=== PATIENT | female | born 1995 | race Caucasian/White ===

== ENCOUNTER 2020-10-28 11:52 | Emergency (ER) | payer OTHER, SELFPAY ==
[2020-10-28 11:56] VITALS: BP 143/96; PULSE 72; RESP 16; TEMP 36.4; O2SAT 100
[2020-10-28 12:09] LABS: Add Urine Microscopic? YES; Appearance Urine Cloudy (Clear); Bilirubin Urine Negative (Negative); Blood Urine 2+ (Negative); Color Urine Yellow (Yellow); Glucose Urine UA Negative (Negative); Ketones Urine Negative (Negative); Leukocyte Esterase Ur 3+ LEU/UL (Negative); Mucus Urine Rare /lpf; Nitrate Urine Negative (Negative); Protein Urine 1+ mg/dL (Negative); RBC Urine 21-50 /hpf (0-2); Specific Grav Ur 1.018 (1.001-1.035); Squamous Epithelial Cell Urine Many /hpf (Few); Urobilinogen Urine Negative mg/dL (<2.0); WBC Urine >75 /hpf
--- NOTE | 2020-10-28 13:41 | ED.FEMALEGU ---
HPI - Female Genitourinary General Chief complaint: Urogenital-Female Stated complaint: urinary symptoms Time Seen by Provider: 10/28/20 11:59 History of Present Illness HPI Narrative: Patient is a 25-year-old female who presents ER with concerns for UTI. Patient has lower abdominal pressure with urinary frequency and urgency. She is also been experiencing dysuria. Ongoing for 2 days. No fevers or chills or sweats. Reports she is also had increase in vaginal discharge over the last couple days. 3 weeks ago patient experienced a miscarriage at 10 weeks gestation. She is taken a test until it was negative which took 2 weeks. She is not having vaginal bleeding. Reports being sexually active with one partner and does not feel she is at risk for sexually transmitted infection. Related Data Allergies Allergy/AdvReac Type Severity Reaction Status Date / Time No Known Allergies Allergy Unknown Verified 10/28/20 11:56 Review of Systems Review of Systems: All systems reviewed & are unremarkable except as noted in HPI and below Constitutional: Constitutional: Denies chills Comments: Afebrile Gastrointestinal: Gastrointestinal: Reports abdominal pain, Denies nausea and Denies vomiting Genitourinary: Genitourinary: Denies abnormal vaginal bleeding, Denies hematuria, Reports nocturia, Reports dysuria and Reports vaginal discharge PMFSH Past Medical History Medical History (Updated 10/28/20 @ 13:52 by Santiago Sahu MD) Depression Surgical History Surgical History (Updated 10/28/20 @ 13:50 by Santiago Sahu MD) No pertinent past surgical history Social History Social History Smoking status: Never smoker Alcohol intake: never Substance use: never Gender identity (if verbalized by the patient): Female Spiritual care concerns: No Exam Narrative: Exam Narrative: GENERAL: Well-appearing, well-nourished, and in no acute distress. HEAD: Normocephalic, atraumatic. CHEST: Clear to auscultation. No respiratory distress. HEART: Regular rate and rhythm. Normal peripheral pulses. ABDOMEN: Soft, nontender, nondistended. No CVA tenderness. Pelvic: Normal external genitalia. Vaginal exam with white physiologic discharge. Cervix normal appearance with closed cervical os and no signs of friability/erythema. No tenderness on speculum exam. EXTREMITIES: Normal range of motion. No edema. NEURO: Alert and oriented x3. Course Course Emergency Course: Symptoms felt to be related to UTI. Pelvic swabs sent to the lab. Follow-up with PCP or gynecology. Vital Signs Vital signs: Vital Signs Temperature 97.6 F 10/28/20 11:56 Pulse Rate 72 10/28/20 11:56 Respiratory Rate 16 10/28/20 11:56 Blood Pressure 143/96 H 10/28/20 11:56 Pulse Oximetry 100 10/28/20 11:56 Temperature 97.6 F 10/28/20 11:56 Pulse Rate 72 10/28/20 11:56 Respiratory Rate 16 10/28/20 11:56 Blood Pressure 143/96 H 10/28/20 11:56 Pulse Oximetry 100 10/28/20 11:56 MDM - Female Genitourinary Lab Data Labs: Lab Results 10/28/20 Range/Units 12:00 Urine Color Yellow (Yellow) Urine Appearance Cloudy H (Clear) Urine pH 6.0 (5.0-9.0) Ur Specific Alden 1.018 (1.001-1.035) Urine Protein 1+ H (Negative) mg/dL Urine Glucose (UA) Negative (Negative) mg/dL Urine Ketones Negative (Negative) mg/dL Ur Blood (Man) 2+ H (Negative) Urine Nitrate Negative (Negative) Urine Bilirubin Negative (Negative) Urine Urobilinogen Negative (<2.0) mg/dL Leukocyte Esterase Rfl 3+ H (Negative) ERVIN/UL Urine RBC 21-50 H (0-2) /hpf Urine WBC >75 H /hpf Ur Squamous Epith Cells Many H (Few) /hpf Urine Mucus Rare /lpf UCG Bedside Result Negative Reference Range: Negative Discharge Plan Discharge Clinical Impression: UTI (urinary tract infection) Patient Disposition: Home, Self-Care Condition
[2020-10-28 13:57] VITALS: BP 138/76; PULSE 72; RESP 18; O2SAT 100
== END 2020-10-28 13:58 | disposition home or self-care (01) ==
PROVIDERS: Emergency Provider Emergency Medicine; Referring Provider Family Medicine
DX: N39.0 Urinary tract infection, site not specified (principal)
CPT/HCPCS: 81001; 81025; 87070; 87077; 87086; 87088; 87491; 87591; 87808; 99284

== ENCOUNTER 2021-03-17 09:26 | Emergency (ER) | payer OTHER, SELFPAY ==
[2021-03-17 09:35] VITALS: BP 113/72; PULSE 50; RESP 16; TEMP 36.8; O2SAT 100
--- NOTE | 2021-03-17 10:15 | ED.GENADULT ---
HPI - General Adult General Chief complaint: Urogenital-Female Stated complaint: ?Yeast Infection,17 weeks Time Seen by Provider: 03/17/21 09:43 Source: patient Mode of arrival: ambulatory Limitations: no limitations History of Present Illness HPI narrative: Patient is here for concern for vaginal yeast infection. She was treated for UTI x2 in the past 4 weeks. She is 17 weeks . She was also treated for yeast infection with Diflucan x2 doses approximately 4 weeks ago. She denies urinary symptoms although does have some blood when she wipes. She denies any cramping and has been diagnosed with subchorionic hemorrhage in this consequently has been on prior pelvic rest. Denies pain or cramping. Onset (ago): day(s) Quality: burning and other (itching) Pain Consistency: constant Relieving factors: none Related Data Allergies Allergy/AdvReac Type Severity Reaction Status Date / Time No Known Allergies Allergy Unknown Verified 03/17/21 09:37 Review of Systems Review of Systems: All systems reviewed & are unremarkable except as noted in HPI and below PMFSH Past Medical History Medical History Depression Surgical History Surgical History No pertinent past surgical history Social History Social History Smoking status: Never smoker Alcohol intake: never Substance use: never Gender identity (if verbalized by the patient): Female Spiritual care concerns: No Exam Const: General: healthy appearing, no acute distress and alert HENMT: Head: normal to inspection Resp: Effort & Inspection: normal respiratory effort Cardio: Rate: regular rate Rhythm: regular rhythm GI: GI Palp: Yes Soft to palpation : Speculum Exam - Vagina: abnormal vaginal discharge white and caseous Back/Spine/Pelvis: Back: no CVA tenderness Skin: General skin exam: normal color Course Course Emergency Course: Spoke with Dr. Rubio, OB on-call for the group. Given the patient's recent treatment with 2 doses of fluconazole every 72 in the recurrence of the infection she recommends 3 doses of fluconazole every 48 hours. Vital Signs Vital signs: Vital Signs Temperature 36.8 C 03/17/21 09:35 Pulse Rate 50 L 03/17/21 09:35 Respiratory Rate 16 03/17/21 09:35 Blood Pressure 113/72 03/17/21 09:35 Pulse Oximetry 100 03/17/21 09:35 Temperature 36.8 C 03/17/21 09:35 Pulse Rate 50 L 03/17/21 09:35 Respiratory Rate 16 03/17/21 09:35 Blood Pressure 113/72 03/17/21 09:35 Pulse Oximetry 100 03/17/21 09:35 Medical Decision Making Vital Signs Vital Signs: Vital Signs Temperature 36.8 C 03/17/21 09:35 Pulse Rate 50 L 03/17/21 09:35 Respiratory Rate 16 03/17/21 09:35 Blood Pressure 113/72 03/17/21 09:35 Pulse Oximetry 100 03/17/21 09:35 Temperature 36.8 C 03/17/21 09:35 Pulse Rate 50 L 03/17/21 09:35 Respiratory Rate 16 03/17/21 09:35 Blood Pressure 113/72 03/17/21 09:35 Pulse Oximetry 100 03/17/21 09:35 Discharge Plan Discharge Clinical Impression: Yeast infection involving the vagina and surrounding area, and infectious disease in second trimester Patient Disposition: Home, Self-Care Condition: Stable Instructions: Antibiotic Form, Yeast Infection (ED) Additional Instructions: You are given your first dose of fluconazole in the emergency room. 2 more doses have been ordered for every 48 hours. She her next dose will be on 03/19. Please eat yogurt with probiotic. Follow-up with your wood last maker at the end of treatment. Continue pelvic rest as ordered by your OB. Prescriptions: New fluconazole 150 mg tablet 150 mg PO Q48H Qty: 2 RF: 0 No Action cephalexin 500 mg capsule 500 mg PO Q12H Qty: 14 RF: 0 Follow-up/Referrals: Oscar Newton
[2021-03-17 10:45] LABS: Add Urine Microscopic? YES; Appearance Urine Cloudy (Clear); Bacteria Urine 2+ /hpf; Bilirubin Urine Negative (Negative); Blood Urine 1+ (Negative); Color Urine Yellow (Yellow); Glucose Urine UA Negative (Negative); Ketones Urine Negative (Negative); Leukocyte Esterase Ur 1+ LEU/UL (Negative); Mucus Urine Rare /lpf; Nitrate Urine Negative (Negative); Protein Urine Negative (Negative); RBC Urine 0-2 /hpf (0-2); Specific Grav Ur 1.012 (1.001-1.035); Squamous Epithelial Cell Urine Many /hpf (Few); Urobilinogen Urine Negative mg/dL (<2.0)
[2021-03-17] MEDS: FLUCONAZOLE 150 MG TABLET PO (11:05)
== END 2021-03-17 11:22 | disposition home or self-care (01) ==
PROVIDERS: Physician Assistant; Emergency Provider Student in an Organized Health Care Education/Training Program; PCP Family Medicine
DX: O98.812 Other maternal infectious and parasitic diseases complicating pregnancy, second trimester (principal); Z3A.17 17 weeks gestation of pregnancy
CPT/HCPCS: 81001; 87086; 99283; A9270

== ENCOUNTER 2021-06-24 14:31 | Observation (INO) | payer OTHER, SELFPAY ==
[2021-06-24] VITALS (81 sets, daily range): BP systolic 115–137; BP diastolic 68–88; PULSE 66–94; RESP 16; TEMP 36.4–36.8; O2SAT 97–100; BMI 26.8
--- NOTE | ~2021-06-24 | US_ITS ---
EXAMINATION: US OB follow up w BPP EXAM DATE: 06/26/2021 09:18 INDICATION: EFW; Growth Percentile; SEAN labor. 3rd trimester. TECHNIQUE: Pelvic obstetrical transabdominal sonogram was performed by a technologist. There are mu ltiple grayscale and Doppler images available for interpretation. There are no earlier studies of th is gestation for comparison. FINDINGS: There is a single fetus identified in transverse presentation with a heart rate of 126 beat s per minute. The placenta is located in the anterior fundal position. There is no sonographic evide nce of retroplacental hemorrhage identified. The amniotic fluid index is 13.7 centimeters, which is n ormal. BIOMETRIC DATA: Biparietal diameter (BPD): 7.7 cm --------------> 31 weeks 0 days. Head circumference (HC): 30.0 cm ---------------> 33 weeks 2 days. Abdominal circumference (AC): 29.5 cm ---------> 33 weeks 3 days. Femur length (FL): 6.3 cm ------------------------> 32 weeks 3 days. These measurements are concordant. HC/AC ratio is 1.02 (The 5th -- 95th percentile range is 0.96-1.12. Estimated weight is 2075 g +/- 311 g. This is the 77th percentile when the currently reported clinical gestation age 31 weeks 5 days, clinical estimated date of delivery ([facility]) 08/23/2021 is u sed. estimated gestational age based on measurements from this exam is 32 weeks 4 days, with an estimated date of delivery ([facility]) 08/17/2021. BIOPHYSICAL PROFILE (performed by the technologist) breathing (30 sec sustained breathing in 30 minutes): 0 out of 2 movement (3 gross body movements in 30 minutes): 0 out of 2 tone (one episode of btjpkuk-cfibxynpe-nquomzy limb movement): 2 out of 2 Amniotic fluid pocket (2 cm): 2 out of 2 Total score: 8 out of 8 IMPRESSION: 1. Single fetus with heart rate of 126 bpm, 77th percentile using gestational age 31 weeks 5 days. 2. Normal SEAN 13.7 cm. 3. Abnormal BPS 4/8. I phoned abnormal BPS results, nurse was already aware. Reviewed, dictated and finalized at location A.
--- NOTE | ~2021-06-24 | US_ITS ---
EXAMINATION: US OB BPP wo non-stress EXAM DATE: 06/26/2021 12:22 INDICATION: Repeat BPP due to earlier 12/19 labor. Repeat BPP 12/19. 3rd trimester. TECHNIQUE: Pelvic obstetrical transabdominal sonogram was performed by a technologist. There are mu ltiple grayscale and Doppler images available for interpretation. FINDINGS: There is a single fetus identified in transverse, head to maternal left presentation with a heart rate of 152 beats per minute. The placenta is located in the anterior fundal position. There is no sonographic evidence of retroplacental hemorrhage identified. There is subjectively expected a mount of amniotic fluid. BIOPHYSICAL PROFILE (performed by the technologist) breathing (30 sec sustained breathing in 30 minutes): 2 out of 2 movement (3 gross body movements in 30 minutes): 2 out of 2 tone (one episode of eixksou-cqxkcthvr-kwunasq limb movement): 2 out of 2 Amniotic fluid pocket (2 cm): 2 out of 2 Total score: 8 out of 8 IMPRESSION: 1. Single fetus with heart rate of 152 bpm. 2. Normalization of biophysical profile score of, now 8 out of 8. Reviewed, dictated and finalized at location A.
--- NOTE | 2021-06-24 15:00 | OBADM ---
This patient, Michaela Styles, admitted to the OB room OB Post 116 for observation. Patient/family oriented to hospital policies and general routines including ID bracelet, bed and alarms, visiting hours, pain management, procedures, bathroom and other care routines, personal items, smoking policy, room service/diet, and visiting hours. Patient/Family are encouraged to report perceived risks to care and to ask questions if they do not understand what they are told or what they should do.
[2021-06-24 15:15] LABS: Add Urine Microscopic? YES; Appearance Urine Cloudy (Clear); Bacteria Urine 2+ /hpf; Bilirubin Urine Negative (Negative); Blood Urine 2+ (Negative); Color Urine Yellow (Yellow); Glucose Urine UA Negative (Negative); Ketones Urine Negative (Negative); Leukocyte Esterase Ur 3+ LEU/UL (NEGATIVE); Mucus Urine Rare /lpf; Nitrate Urine Negative (Negative); Protein Urine 2+ mg/dL (Negative); Squamous Epithelial Cell Urine Few /hpf (Few); Urobilinogen Urine Negative mg/dL (<2.0); WBC Urine >75 /hpf (0-3)
--- NOTE | 2021-06-24 16:00 | PC.NURSE ---
Dr Rubio notified of contractions. Orders for FFN and SVE.
[2021-06-24 16:22] LABS: Specific Grav Ur 1.004 (1.001-1.035)
--- NOTE | 2021-06-24 16:30 | PC.NURSE ---
Dr Rubio notified of SVE of , no bleeding or leaking noted on spec exam. FFN collected prior to exam.
[2021-06-24 16:45] LABS: Fetal Fibronectin Positive
[2021-06-24] MEDS: NIFEdipine 10 MG CAPSULE PO (16:50)
[2021-06-24] MEDS: BETAMETHASONE SOD PHOS/ACETATE 30 MG/5 ML VIAL 12 MG IM (16:50)
[2021-06-24] MEDS: LACTATED RINGERS 1,000 ML 999 ML IV CONT (17:03)
--- NOTE | 2021-06-24 17:30 | PC.NURSE ---
Dr Rubio updated on FFN results being pos. Plans for IV fluids and recheck cervix in 1-2 hours. Contractions now spacing.
[2021-06-24] MEDS: SODIUM CHLORIDE 0.9% IV 1,000 ML 125 ML IV CONT (18:17)
--- NOTE | 2021-06-24 19:04 | PC.NURSE ---
Dr Rubio updated on sve, start Magnesium sulfate and recheck patient in 1 hour. Call with repeat exam.
[2021-06-24] MEDS: MAGNESIUM SULF 4 GM/WATER100ML 4 GM/100 ML BAG IVPB (19:17)
[2021-06-24] MEDS: MAGNESIUM SULF 20GM/WATER500ML 500 ML 50 MG IV CONT (19:56)
--- NOTE | 2021-06-24 20:24 | PC.NURSE ---
Called Dr. Rubio- cervical exam reveiwed- soft cervix. pt feeling contractions. will recheck cervix in 1 hour and call with exam.
--- NOTE | 2021-06-24 21:38 | PC.NURSE ---
2129- Dr. Rubio called- updated on pt status. cervical exam 2/70% soft anterior. pt is feeling contractions rating them 4/10 on pain scale. orders received to continue to monitor pt. call Dr. Rubio if pt starts to feel more uncomfortable with contractions or if the contractions become more regular.
--- NOTE | 2021-06-24 22:36 | PC.NURSE ---
2234- Called Dr. Rubio- pt stating that the contractions have gotten stronger and taking her breath away . tracing reviewed. no cervical exam done. orders to continue to monitor for 30 more minutes. if continues to have stronger contractions do cervical exam and call Dr. Rubio with exam.
--- NOTE | 2021-06-24 23:16 | PC.NURSE ---
called Dr. Rubio- cervical exam unchanged from prior exam. informed her that pt is now breathing through contractions and stating that they are getting stronger and hurting more. orders received to continue to monitor pt. no cervical exams unless necessary. call if contractions become stronger and closer together or if other concerns.
[2021-06-25] VITALS (132 sets, daily range): BP systolic 93–131; BP diastolic 50–90; PULSE 63–110; RESP 12–16; TEMP 36.1–36.4; O2SAT 98–100
--- NOTE | 2021-06-25 00:13 | PC.NURSE ---
pt laying on left side, sleeping comfortably. monitor adjusted
--- NOTE | 2021-06-25 02:57 | PC.NURSE ---
0253- called Dr. Rubio- pt states that she is starting to have a panic attack. pt is starting to shake and feels very anxious. heart tracing reviewed. pt also c/o itching and wanting medication to help with itching. pt states that she feels like the contractions have slowed down. orders received for xanax 1 mg po x1, zofran 4 mg for nausea PRN, benadryl 25mg IV for the itching PRN. will continue to monitor and call if questions/concerns.
[2021-06-25] MEDS: ONDANSETRON INJ 4 MG/2 ML VIAL IV PUSH (03:14)
[2021-06-25] MEDS: diphenhydrAMINE HCl INJ 50 MG/ML VIAL 25 MG IV PUSH (03:17)
--- NOTE | 2021-06-25 03:36 | PC.NURSE ---
0315- pt offered xanax 1mg for anxiety attack per orders received from Dr. Rubio. pt refuses xanax at this time and will try to take the benadryl for itching and to help her sleep.
--- NOTE | 2021-06-25 07:06 | PM.IMHP ---
H&P: HPI History of Present Illness Date/Time: 06/25/21 07:06 Chief Complaint: contractions Narrative: Michaela is a 26yo at 31.4 who presented yesterday with contractions. She has a history of 4 deliveries (35,36,36,36w). She was 1/70/-3 on admission, changed to 1.5/70 over a couple hours, then to 2cm over a couple more hours. Then contractions spaced out and cervical change stopped. Received first dose of celestone and a dose of Rocephin for significant UTI, though she was asymptomatic other than the contractions. Had one dose of procardia that did not help. Magnesium was started when she changed to 2cm. She remains on magnesium now. Since 3am she slept well with no complaints. FFN was postitive. Review of Systems Review of Systems: All systems reviewed & are unremarkable except as noted in HPI and below PMFSH Past Medical History Medical History Depression Surgical History Surgical History No pertinent past surgical history Social History Social History Smoking status: Never smoker Alcohol intake: never Substance use: never Gender identity (if verbalized by the patient): Female Spiritual care concerns: No Meds Home Medications and Allergies Home Medications Medication Instructions Recorded Confirmed Type cephalexin 500 mg PO Q12H #14 cap 10/28/20 Rx fluconazole 150 mg PO Q48H #2 tablet 03/17/21 Rx Allergies Allergy/AdvReac Type Severity Reaction Status Date / Time No Known Allergies Allergy Unknown Verified 03/17/21 09:37 Vital Signs Vital Signs - 24 hr 06/24/21 15:00 06/24/21 15:15 06/24/21 15:30 Temperature 98.1 F Pulse Rate 72 74 73 Respiratory Rate Blood Pressure 122/73 116/77 125/72 Pulse Oximetry 06/24/21 15:45 06/24/21 16:00 06/24/21 16:15 Temperature Pulse Rate 72 70 74 Respiratory Rate Blood Pressure 120/71 118/68 119/77 Pulse Oximetry 06/24/21 16:30 06/24/21 16:45 06/24/21 18:00 Temperature 98.2 F Pulse Rate 80 70 Respiratory Rate Blood Pressure 119/71 118/71 Pulse Oximetry 06/24/21 19:18 06/24/21 19:23 06/24/21 19:28 Temperature 98.3 F Pulse Rate 66 68 Respiratory Rate 16 Blood Pressure 118/72 118/72 Pulse Oximetry 99 99 100 06/24/21 19:30 06/24/21 19:33 06/24/21 19:38 Temperature Pulse Rate 76 Respiratory Rate Blood Pressure 115/73 Pulse Oximetry 100 99 06/24/21 19:43 06/24/21 19:45 06/24/21 19:48 Temperature Pulse Rate 76 Respiratory Rate Blood Pressure 124/77 Pulse Oximetry 99 100 06/24/21 19:53 06/24/21 19:59 06/24/21 20:00 Temperature Pulse Rate 79 Respiratory Rate Blood Pressure 128/79 Pulse Oximetry 100 100 06/24/21 20:04 06/24/21 20:09 06/24/21 20:14 Temperature Pulse Rate Respiratory Rate Blood Pressure Pulse Oximetry 98 99 100 06/24/21 20:15 06/24/21 20:19 06/24/21 20:24 Temperature Pulse Rate 75 Respiratory Rate Blood Pressure 121/77 Pulse Oximetry 100 100 06/24/21 20:29 06/24/21 20:30 06/24/21 20:34 Temperature Pulse Rate 84 Respiratory Rate Blood Pressure 127/75 Pulse Oximetry 98 98 06/24/21 20:39 06/24/21 20:44 06/24/21 20:45 Temperature Pulse Rate 81 Respiratory Rate Blood Pressure 121/75 Pulse Oximetry 99 99 06/24/21 20:49 06/24/21 20:54 06/24/21 20:59 Temperature Pulse Rate Respiratory Rate Blood Pressure Pulse Oximetry 99 100 99 06/24/21 21:00 06/24/21 21:04 06/24/21 21:09 Temperature Pulse Rate 80 Respiratory Rate Blood Pressure 129/75 Pulse Oximetry 99 98 06/24/21 21:14 06/24/21 21:15 06/24/21 21:19 Temperature Pulse Rate 78 Respiratory Rate Blood Pressure 125/72 Pulse Oximetry 99 100 06/24/21 21:24 06/13
[2021-06-25] MEDS: MAGNESIUM SULF 20GM/WATER500ML 500 ML 50 MG IV CONT ×2 (07:07→18:23)
[2021-06-25] MEDS: SODIUM CHLORIDE 0.9% IV 1,000 ML 75 ML IV CONT ×2 (07:07→20:48)
[2021-06-25] MEDS: BETAMETHASONE SOD PHOS/ACETATE 30 MG/5 ML VIAL 12 MG IM (16:59)
[2021-06-26] VITALS (44 sets, daily range): BP systolic 101–117; BP diastolic 51–69; PULSE 58–75; RESP 16; TEMP 36.5–37.1; O2SAT 94–100
[2021-06-26] MEDS: diphenhydrAMINE HCl CAP 25 MG CAPSULE PO (00:15)
--- NOTE | 2021-06-26 08:00 | PM.OBPNVD ---
OB - PN: Subj Subjective Date/time seen: 06/26/21 08:00 Patient denies feeling contractions, she denies any loss of fluid or vaginal bleeding. She reports good movement. She denies any nausea, vomiting, fever, chills. OB - PN A/P Assessment and Plan (1) labor in third trimester: Code(s): O60.03 - labor without delivery, third trimester Status: Acute Assessment and Plan: This patient is a 26-year-old female with history of labor. She is 31 weeks gestation. Patient treated with magnesium sulfate for about 36 hours. Steroids given. magnesium sulfate has been discontinued. Some nonreassuring heart tones though overall variability is excellent. Some mild variable or late D cells with contractions , very few lates. to obtain OB ultrasound for SEAN, BPP, Growth. consider discharge later today. Time Spent With Patient Time: Total time spent is greater than 50% in coordination of care (as documented) at patient's floor/unit and/or counseling patient: Exam Const: General: comfortable, no acute distress and alert Resp: Effort & Inspection: normal respiratory effort Auscultation: no crackles, no rales and no rhonchi Cardio: Rate: regular rate Heart sounds: no click, no murmurs and no rubs GI: Inspection: non-distended GI Palp: No Tenderness to palpation present (GI) Auscultation: normal bowel sounds Other: Incision - CDI Extrem: General: normal to inspection, no pedal edema and no calf tenderness
== END 2021-06-26 14:42 | disposition home or self-care (01) ==
PROVIDERS: Advanced Practice Midwife; Obstetrics & Gynecology; Admitting Provider Obstetrics & Gynecology; Visit Provider Obstetrics & Gynecology
DX: O60.03 Preterm labor without delivery, third trimester (principal); N39.0 Urinary tract infection, site not specified; Z3A.31 31 weeks gestation of pregnancy
CPT/HCPCS: 76816; 76819; 81001; 82731; 87077; 87086; 87088; 87186; 96361; 96365; 96366; 96367; 96372; 96375; A9270; G0378; G0379; J0696; J0702; J1200; J2405; J3475; J7030; J7120

== ENCOUNTER 2021-07-15 10:38 | Observation (INO) | payer OTHER, SELFPAY ==
[2021-07-15 11:02] VITALS: TEMP 36.4
[2021-07-15 11:03] VITALS: BP 130/83; PULSE 68
[2021-07-15 12:30] VITALS: BMI 27.8
--- NOTE | 2021-07-15 13:18 | OBADM ---
This patient, Michaela Styles, admitted to the OB room OB Post 117 for observation. Patient/family oriented to hospital policies and general routines including ID bracelet, bed and alarms, visiting hours, pain management, procedures, bathroom and other care routines, personal items, smoking policy, room service/diet, and visiting hours. Patient/Family are encouraged to report perceived risks to care and to ask questions if they do not understand what they are told or what they should do.
--- NOTE | 2021-07-17 06:19 | PM.OBTRLD ---
OB - Triage/Final Diagnosis Visit Information Date of evaluation: 07/15/21 Reason for evaluation: threatened labor Comments/Additional reasons for admission: I have assessed the risk for this patient, Michaela Rosanne Styles, and determined that she would benefit from observation care.
== END 2021-07-15 13:15 | disposition home or self-care (01) ==
PROVIDERS: Admitting Provider Obstetrics & Gynecology; Visit Provider Obstetrics & Gynecology
DX: O47.03 False labor before 37 completed weeks of gestation, third trimester (principal); Z3A.34 34 weeks gestation of pregnancy
CPT/HCPCS: G0378; G0379

== ENCOUNTER 2021-07-22 11:06 | Outpatient (CLI) | payer OTHER, SELFPAY ==
[2021-07-22] VITALS (11 sets, daily range): BP systolic 113–132; BP diastolic 66–86; PULSE 56–84
[2021-07-22 12:20] LABS: Basophils Percent Auto 0.3 % (0.2-1.2); Eosinophils Absolute Auto 0.1 K/mm3 (0-0.3); Eosinophils Percent Auto 1.1 % (0-4.4); Hematocrit 32.7 % (37.0-47.0); Hemoglobin 10.4 g/dL (12.0-15.0); Immature Granulocyte Absolute 0.12 K/mm3 (0.00-0.031); Immature Granulocyte Percent A 1.1 % (0-0.5); Lymphocytes Percent Auto 13.6 % (18.3-44.2); Mean Corpuscular HGB Conc 31.8 g/dl (32-36); Mean Corpuscular Hemoglobin 26.9 pg (26-34); Mean Corpuscular Volume 84.7 fl (80-100); Monocytes Absolute Auto 0.6 K/mm3 (0.1-0.6); Monocytes Percent Auto 5.6 % (2.6-8.5); Neutrophils Absolute Auto 8.7 K/mm3 (1.3-6.7); Neutrophils Percent Auto 78.3 % (45.5-73.1); Platelet Count Result 197 k/mm3 (150-375); Red Blood Count 3.86 M/mm3 (4.2-5.4); Red Cell Distribution Width 13.8 % (11.5-14.5); White Blood Count 11.1 K/mm3 (4.5-10.0)
[2021-07-22 12:27] LABS: Add Urine Microscopic? YES; Appearance Urine Cloudy (Clear); Bacteria Urine Trace /hpf; Bilirubin Urine Negative (Negative); Blood Urine Negative (Negative); Color Urine Yellow (Yellow); Glucose Urine UA Negative (Negative); Ketones Urine Negative (Negative); Leukocyte Esterase Ur 3+ LEU/UL (NEGATIVE); Mucus Urine Rare /lpf; Nitrate Urine Negative (Negative); Protein Urine Negative (Negative); RBC Urine 0-2 /hpf (0-2); Specific Grav Ur 1.008 (1.001-1.035); Squamous Epithelial Cell Urine Many /hpf (Few); Urobilinogen Urine Negative mg/dL (<2.0); WBC Urine 21-30 /hpf (0-3)
[2021-07-22 12:29] LABS: Creatinine Urine 46.3 mg/dL; Total Protein Urine Random 15 mg/dL; Ur Ttl Prot Creatinine Ratio 0.32 mg/mg (0-0.20)
[2021-07-22 12:32] LABS: Alanine Aminotransferase 12 U/L (4-35); Albumin Level 3.2 g/dL (3.5-5.1); Alkaline Phosphatase 139 U/L (38-126); Anion Gap 7 mmol/L (8-16); Aspartate Amino Transferase 16 U/L (14-36); Bilirubin,Total 0.4 mg/dL (0.2-1.3); Blood Urea Nitrogen 5 mg/dL (7-17); Calcium 9.1 mg/dL (8.4-10.2); Carbon Dioxide 22 mmol/L (22-30); Chloride 107 mmol/L (98-107); Estimated Glomerular Filt Rate > 60; Glucose 84 mg/dL (65-110); Potassium 3.5 mmol/L (3.4-5.0); Sodium 136 mmol/L (137-145); Uric Acid 5.8 mg/dL (2.5-7.5)
--- NOTE | 2021-07-22 12:58 | PC.NURSE ---
Arlene ARGUELLO called, read lab results and bp's. Reported SVE of 3.5cm. Order received to recheck cervix in 2 hours and give 30mg procardia xl and start 24hr urine.
[2021-07-22] MEDS: NIFEdipine 30 MG TAB.ER.24 PO (13:14)
--- NOTE | 2021-07-22 14:14 | PC.NURSE ---
1106-Pt was sent over from the office by Arlene ARGUELLO for contractions and elevated bp. Orders given for PIH labs and SVE.
== END 2021-07-22 15:10 | disposition home or self-care (01) ==
LOC: ANHOBOP 11:11 → ANHOBPP 11:11
PROVIDERS: Advanced Practice Midwife; Visit Provider Obstetrics & Gynecology
DX: O13.9 Gestational [pregnancy-induced] hypertension without significant proteinuria, unspecified trimester (principal)
CPT/HCPCS: 36415; 59025; 80053; 81001; 82570; 84156; 84550; 85025; 87077; 87086; 87088; 99199; A9270

== ENCOUNTER 2021-07-23 14:21 | Outpatient (CLI) | payer OTHER, SELFPAY ==
[2021-07-23 14:30] VITALS: BMI 27.8
[2021-07-23 16:09] LABS: Collection Time Urine 24 HOURS
[2021-07-23 16:18] LABS: Creatinine Urine 40.6 mg/dL; Patient Weight 167 Lbs; Total Protein Urine Random 14 mg/dL
[2021-07-23 17:07] LABS: Creatinine Clearance Urine 87.8 ml/min (75-125); Total Protein Urine 24 Hr 322 mg/24hr (28-141); Total Volume 24 Hour Urine 2300 ml
== END 2021-07-23 14:22 | disposition home or self-care (01) ==
LOC: ANHOBOP 14:21
PROVIDERS: Obstetrics & Gynecology; Visit Provider Advanced Practice Midwife
DX: O13.9 Gestational [pregnancy-induced] hypertension without significant proteinuria, unspecified trimester (principal); Z3A.00 Weeks of gestation of pregnancy not specified
CPT/HCPCS: 81050; 82575; 84156

== ENCOUNTER 2021-07-28 22:57 | Inpatient (IN) | payer OTHER, SELFPAY ==
--- OUTSIDE RECORDS SUMMARY | 2021-07-28 23:09 | XMS_ITS | Encounter Summary ---
:1995 Author Reason for Visit None recorded. Assessment and Plan 1. Threatened premature labor - not delivered ? US, obstetric, biophysical profile Discussion Note: None recorded.Patient educational handouts: No information available. Plan of Care Reminders Provider Appointments Nst Nst, , EQ UIP 07/29/2021 10:30AM ? Ob Routine Zulay Hdz, 07/29/2021 CNM 11:00AM ? Nst Nst, , EQUI P 08/01/2021 1:00PM ? Induction Sachin Walton 08/02/2021 MD [place] 6:30AM ? Ob Routine Balbir Walton 08/05/2021 MD [place] 10:30AM ? Ob Routine Zulay Hdz, 08/12/2021 CNM 11:00AM ? Ob Routine Cony Bush, CNM 08/19/2021 10:00AM Lab None recorded. ? ? Referral None recorded. ? ? Procedures None recorded. ? ?
--- OUTSIDE RECORDS SUMMARY | 2021-07-28 23:09 | XMS_ITS | Encounter Summary ---
:1995 Author Reason for Visit None recorded. Assessment and Plan 1. History of premature delivery ? non-stress test Discussion Note: None recorded.Patient educational handouts: No [...] Cony Bush, CNM 08/19/2021 10:00AM Lab None ? ? recorded. Referral None ? ? recorded. Procedures None ? ? recorded. Surgeries None ? ? recorded. Imaging Non-stress [facility] Test 07/15/2021
--- OUTSIDE RECORDS SUMMARY | 2021-07-28 23:09 | XMS_ITS | Encounter Summary ---
:1995 Author Reason for Visit OB visit Assessment and Plan Assessment Note Patient is ___weeks . Discu ssed plan. 1. Routine care Discussion Note: None recorded.Patient educational handouts: No [...] recorded. Surgeries None ? ? recorded. Imaging None ? ? recorded
--- OUTSIDE RECORDS SUMMARY | 2021-07-28 23:09 | XMS_ITS | Encounter Summary ---
:1995 Author Reason for Visit None recorded. Assessment and Plan 1. Threatened premature labor - not delivered ? non-stress test Discussion Note: None recorded.Patient [...] Surgeries None ? ? recorded. Imaging Non-stress [facility] 07/04/2021
--- OUTSIDE RECORDS SUMMARY | 2021-07-28 23:09 | XMS_ITS | Encounter Summary ---
[...] CNM 11:00AM ? Ob Routine Cony Bush, CN 08/19/2021 10:00AM Lab None ? ? recorded. Referral None ? ? recorded. Procedures None ? ? recorded. Surgeries None ? ? recorded. Imaging None ? ? recorded.
--- OUTSIDE RECORDS SUMMARY | 2021-07-28 23:09 | XMS_ITS | Encounter Summary ---
[...] ? recorded. Imaging Non-stress [facility] 07/11/2021
--- OUTSIDE RECORDS SUMMARY | 2021-07-28 23:09 | XMS_ITS | Encounter Summary ---
[...] ? recorded. Imaging Non-stress [facility] 07/08/2021
--- OUTSIDE RECORDS SUMMARY | 2021-07-28 23:09 | XMS_ITS | Encounter Summary ---
:1995 Author Reason for Visit OB visit [id number] / GBS today Assessment and Plan Assessment Note Patient is [...]
--- OUTSIDE RECORDS SUMMARY | 2021-07-28 23:09 | XMS_ITS | Encounter Summary ---
[...] ? recorded. Imaging Non-stress [facility] Test 07/22/2021
--- OUTSIDE RECORDS SUMMARY | 2021-07-28 23:09 | XMS_ITS | Encounter Summary ---
:1995 Author Reason for Visit OB visit OB [id number] EDC 08/23/2021 LMP unsure Na [facility] 2020 Assessment and Plan Assessment Note Patient is __34_weeks . Dis cussed plan. 1. Routine care Discussion Note: None [...] 08/12/2021 CNM 11:00AM ? Ob Routine Cony Bush CNM 08/19/2021 10:00AM Lab None ? ? recorded. Referral None ? ? recorded. Procedures None ? ? recorded. Surgeries None ? ? recorded.
--- OUTSIDE RECORDS SUMMARY | 2021-07-28 23:09 | XMS_ITS | Encounter Summary ---
[...] recorded. Imaging Non-stress [facility] Test 07/25/2021
--- OUTSIDE RECORDS SUMMARY | 2021-07-28 23:09 | XMS_ITS ---
:1995 Author Care Team Providers Name Role Phone Sachni Newton Primary Care Provider Unavailable Allergies Code Code System Name Reaction Severity Status Onset NKDA ? Medications Name Status Start Date Stop Date ? ? cephalexin 250 mg capsule Completed ? 2020 cephalexin 500 mg capsule Completed ? 2020 escitalopram 10 mg tablet Completed ? 2019 TK 1 T PO QD fluconazole 150 mg tablet Completed ? 2020 TAKE 1 TABLET BY MOUTH EVERY 48 HOURS. START 03/19 Keflex 750 mg capsule Completed ? 03/10/2021 Take 1 capsule twice a day by oral route. [place] (PF) 275 mg/1.1 mL subcutaneous auto-injector Completed ? 07/01/2021 Inject 1.1 mL by subcutaneous route. Metrogel Vaginal 0.75 % Completed 05/31/2019 09/26/19 20 insert 1 applicatorful by vaginal route every day at bedtime x 5 nights nystatin-triamcinolone 100,000 unit/gram-0.1 % topical ointm ent Completed 05/31/2019 09/26/2019 apply by topical route 2 times every day to the affected area(s ) Active ? Not available terconazole 0.8 % vaginal cream Completed ? 07/01/2021 INSERT 1 APPLICATORFUL VAGINALLY EVERY DAY AT BEDTIME Problems Name Status Onset Date Source ? Detection Examination Unknown 01/11/[address] Concept Unknown 01/11/2019 History Gestation Period, 9 Weeks Unknown 01/16/2019 Histor y Screening Unknown 02/07/2019 History Spotting per Vagina in Unknown 03/08/2019 His
--- OUTSIDE RECORDS SUMMARY | 2021-07-28 23:09 | XMS_ITS | Encounter Summary ---
:1995 Author Reason for Visit OB visit OB [id number] EDC 08/23/2021 LMP unsure Assessment and Plan Assessment Note Patient is _32__weeks . Dis cussed plan. 1. Routine care [...]
--- OUTSIDE RECORDS SUMMARY | 2021-07-28 23:09 | XMS_ITS | Encounter Summary ---
:1995 Author Reason for Visit f/u L&D, PTL Assessment and Plan 1. Threatened premature labor - not delivered Discussion Note: None recorded.Patient educational handouts: No [...] ? recorded. Imaging None ? ? recorded. Medications Name Start Date ? ?
--- OUTSIDE RECORDS SUMMARY | 2021-07-28 23:09 | XMS_ITS | Encounter Summary ---
[...] ? recorded. Imaging Non-stress [place] Test 07/18/2021
--- OUTSIDE RECORDS SUMMARY | 2021-07-28 23:10 | XMS_ITS | Encounter Summary ---
:1995 Author Reason for Visit OB visit Assessment and Plan Assessment Note Patient is ___weeks . Discu ssed plan. 1. Routine care 2. Premature delivery Discussion Note: None recorded.Patient educational handouts: No [...]
--- OUTSIDE RECORDS SUMMARY | 2021-07-28 23:10 | XMS_ITS | Encounter Summary ---
:1995 Author Reason for Visit injection [place] Injection [place] C [id number] Lot [id number] Exp 06/2022 Assessment and Plan 1. History of premature delivery ? [place] (PF) 275 mg/1.1 mL subcutaneous auto-injector Discussion Note: None recorded.Patient educational handouts: No [...] Hdz, 08/12/2021 CNM 11:00AM ? Ob Routine NATI Schofield 08/19/2021 10:00AM Lab None ? ? recorded. Referral None ? ? recorded. Procedures None ? ? recorded. Surgeries None ? ? recorded. Imaging No
--- OUTSIDE RECORDS SUMMARY | 2021-07-28 23:10 | XMS_ITS | Encounter Summary ---
[...] ? ? recorded. Imaging None ? ? recorde
--- OUTSIDE RECORDS SUMMARY | 2021-07-28 23:10 | XMS_ITS | Encounter Summary ---
:1995 Author Reason for Visit None recorded. Assessment and Plan 1. History of premature labor ? US, obstetric, follow-up Discussion Note: None recorded.Patient educational handouts: No [...] recorded. Surgeries None ? ? recorded. Imaging US, [place] [facility], Follow-up 06/03/2021
--- OUTSIDE RECORDS SUMMARY | 2021-07-28 23:10 | XMS_ITS | Encounter Summary ---
:1995 Author Reason for Visit None recorded. Assessment and Plan 1. Previous operation to cervix affecting ? US, obstetric, follow-up ? US, obstetric, transvagina l Discussion Note: None recorded.Patient educational handouts: No [...]
[2021-07-28 23:36] VITALS: BMI 28.6
--- NOTE | 2021-07-28 23:36 | WPDOBADMIT ---
Obstetrics - Admit Note Admission Note: 26 y/o here in spontaneous labor with spontaneous rupture of membranes.. She will be managed by [facility]. record reviewed. No pertinent additions to the history and/or any subsequent changes in the physical findings that are not consistent with the expected course of the were found. Additions to the history and/or subsequent changes in the physical findings follow. None.
[2021-07-28 23:46] VITALS: BP 127/90; PULSE 67
[2021-07-28 23:52] LABS: Basophils Percent Auto 0.3 % (0.2-1.2); Eosinophils Absolute Auto 0.2 K/mm3 (0-0.3); Eosinophils Percent Auto 1.4 % (0-4.4); Hematocrit 33.1 % (37.0-47.0); Hemoglobin 10.6 g/dL (12.0-15.0); Immature Granulocyte Absolute 0.18 K/mm3 (0.00-0.031); Immature Granulocyte Percent A 1.5 % (0-0.5); Lymphocytes Absolute Auto 1.92 K/mm3 (0.9-3.2); Lymphocytes Percent Auto 15.7 % (18.3-44.2); Mean Corpuscular Hemoglobin 26.8 pg (26-34); Mean Corpuscular Volume 83.6 fl (80-100); Mean Platelet Volume 10.6 fl (7.4-10.4); Monocytes Absolute Auto 1.1 K/mm3 (0.1-0.6); Monocytes Percent Auto 8.7 % (2.6-8.5); Neutrophils Absolute Auto 8.9 K/mm3 (1.3-6.7); Neutrophils Percent Auto 72.4 % (45.5-73.1); Nucleated Red Blood Cells Perc 0.2 % (0.0-0.2); Platelet Count Result 199 k/mm3 (150-375); Red Blood Count 3.96 M/mm3 (4.2-5.4); Red Cell Distribution Width 13.9 % (11.5-14.5); White Blood Count 12.2 K/mm3 (4.5-10.0)
[2021-07-29] VITALS (14 sets, daily range): BP systolic 110–154; BP diastolic 68–126; PULSE 53–74; RESP 16–18; TEMP 36.4–36.7; O2SAT 98–100
--- NOTE | 2021-07-29 00:46 | PM.OBPRVD ---
OB - Delivery Note Procedure Delivery date: 07/29/21 Procedure: vaginal delivery events: Induced HTN Intrapartal events: None Induction method: none Delivery monitor: external FHT and external uterine Route of delivery: Episiotomy description: None Specimen: Yes Quantitative Blood Loss (ml): 27 Anesthesia type: Epidural Disposition: floor Baby Date of : 07/29/21 Time of : 00:34 Weeks of gestation at delivery: 36 gender: Female Weight (pounds): 6 Weight (ounces): 0 presentation: vertex position: Left Occiput Anterior Placenta delivery description: Spontaneous cord vessel description: 3 Vessels, Clamped/Cut, Around Body x1 and Delayed Cord Clamping score one minute: 8 score five minutes: 8 Narrative: mother and baby skin to skin in stable condition
[2021-07-29] MEDS: OXYTOCIN 30 UNITS/NS 500 ML 30 UNITS/500 ML BAG 125 UNITS IV CONT (01:16)
[2021-07-29] MEDS: BENZOCAINE 20% AER SPR (*SP) 56 GM CAN 1 SPRAY TOPICAL (03:48)
[2021-07-29] MEDS: WITCH HAZEL 40 PADS 1 PAD TOPICAL (03:48)
[2021-07-29] MEDS: DOCUSATE SODIUM 100 MG CAPSULE PO (09:43)
[2021-07-29] MEDS: MULTIVIT/MIN/PREN/FOL AC/IRON TABLET 1 TAB PO (09:43)
--- NOTE | 2021-07-29 15:05 | PC.NURSE ---
Mother called out for assist with feeding. Mother reports she is putting to breast each feeding, supplementing 15mls EBM/formula and pumping for 15 minutes. Infant is able to freely thrust tongue past gum ridge and flange both lips. Skin is intact on both nipples, no redness and bruising noted. Discussed establishing in the late may be more difficult due to their immaturity, infant may be less alert, have less stamina, and have greater difficulty with latch, suck, and swallow. Infant?s feeding may impact mother?s milk supply, pumping may need to be continued until milk supply is well established and is able to effectively breastfeed without supplementation. Reviewed infant feeding cues, frequencies, duration of feedings, feeding elimination flow sheet, and signs of adequate intake. Demonstrated stimulation techniques to wake infant for feeding. Assisted with to breast. Reviewed positioning/alignment in cross cradle, holding breast in ?U? hold and guided asymmetrical latch on. Reviewed rational for each. able to latch correctly within a few attempts. Infant nursed eagerly in bursts with steady draws and occasional swallowing noted, followed by long pausing. Reviewed signs of a correct latch, effective nursing and suck swallow ratio. Suggested mother stimulate while feeding to increase stimulation for milk supply, for increased intake and to assist with maintaining deep latch. would slip to shallow latch causing tenderness. Demonstrated how to adjust latch more deeply while feeding as needed. Mother reports she can feel the difference in latch with no tenderness. Nipple care reviewed of lanolin after feedings, warm compresses as needed. Discussed the difference of effective vs ineffective feeding. Reviewed is latching with good burst of suckling, she is not feeding consistently with adequate milk transfer at this time and continues to need supplement after . Feeding options discussed, Feeding Plan is for mother to put infant to breast each feeding for up to 15 minutes, then pace feed supplement 15-20 mls and pump for 10-15 minutes. Parents are comfortable with supplementation and pumping. If infant begins to nurse effectively with long draws and frequent swallowing noted, may decrease supplementation and discontinue pumping. Suggested mother have LC billposting supervisor observe feeding before discontinuing supplementation. Discussed increasing supplementation as infant requires to satisfactions. Reviewed paced feeding and suggested to stop when infant is satisfied, as long as is having required output. With increased supplementation infant may not want to feed for 4 hours. Mother will continue to pump on infant feeding schedule and will increase session to 20 minutes if pumping every 4 hours. Instructed mother to call out for RN assistance if she is unable to latch for feeding or she has discomfort with nursing. Instructed feeding should be initiated three hours from start of last feeding or if feeding cues are noted before. Mother voiced understanding of information shared.
--- NOTE | 2021-07-29 16:01 | PCCCNOTE ---
Care Coordination Note. Patient referred for possible resources and wondering if she had custody of all kids. Spoke with pt. and FOB at bedside. Pt. plans to return home with FOB, , and two oldest kids. She reports her 3 other kids live multimedia specialist with their dad and part-time with her. The oldest kids live with her multimedia specialist. She reports being over-resourced for WIC in the past. She has breast pump through her insurance and has all necessary baby care items. She denies any community resource needs. She also states having good family support. She states having previous kids with this OBGYN and wanted to deliver her again.
--- NOTE | 2021-07-29 16:02 | PC.NURSE ---
1430 Pt has 5 children, 10, 8, 6,4,and 2 and now her . This is FOB's first baby; when nurse asked who was helping with her children while she is in the hospital, pt stated some of her children are with their father and some with her mom. Nurse asked home many live with her and pt did not answer the question. Social service consult ordered to help assess needs for this pt.
[2021-07-30 00:30] VITALS: BP 92/50; PULSE 61; RESP 16; TEMP 36.4; O2SAT 99
[2021-07-30 04:49] LABS: Hematocrit 29.8 % (37.0-47.0); Hemoglobin 9.4 g/dL (12.0-15.0)
--- NOTE | 2021-07-30 07:00 | PC.NURSE ---
PT introductions made and plan of care discussed per post , pain management, bottle feeding, daily care activities. PT and significant other both recipients of such instructions this shift. PT received instructions per one to one discussion, mom baby care guide and demonstrations. No barriers to learning identified at this time. PT verbalized understanding of such care.
--- NOTE | 2021-07-30 08:18 | PM.OBPNVD ---
OB - PN: Subj Subjective Date/time seen: 07/30/21 08:18 Patient comments: no complaints baby status: doing well OB - PN: Obj Data Labs CBC & Chem 7: 07/30/21 04:18 Labs: Laboratory Results - last 24 hr 07/30/21 04:18 Hgb 9.4 L Hct 29.8 L OB - PN A/P Plan day: 1 Plan: routine care Time Spent With Patient Time: Total time spent is greater than 50% in coordination of care (as documented) at patient's floor/unit and/or counseling patient: Review of Systems Review of Systems: All systems reviewed & are unremarkable except as noted in HPI and below Exam Const: General: cooperative, healthy appearing and comfortable
[2021-07-30 09:00] VITALS: BP 110/70; PULSE 60; RESP 18; TEMP 36.6; O2SAT 99
[2021-07-30] MEDS: DOCUSATE SODIUM 100 MG CAPSULE PO ×2 (09:34→18:39)
[2021-07-30] MEDS: POLYSACCHARIDE IRON COMPLEX 150 MG CAPSULE PO ×2 (09:34→18:39)
[2021-07-30] MEDS: MULTIVIT/MIN/PREN/FOL AC/IRON TABLET 1 TAB PO (09:34)
--- NOTE | 2021-07-30 15:00 | PC.NURSE ---
Consult with pt., mother states she has switched from breast to bottle feeding. Mother decided attempting to breast, bottle feeding and pumping is not a realistic plan for home with other children. Discussed milk supply may transition in within a few days, reviewed engorgement relief. Offered assist with questions or concerns concerning bottle and . Mother has no questions at this time.
[2021-07-30 20:17] VITALS: BP 123/75; PULSE 60; RESP 18; TEMP 36.8; O2SAT 99
--- NOTE | 2021-07-31 07:48 | PM.OBPNVD ---
OB - PN: Subj Subjective Date/time seen: 07/31/21 07:48 Patient comments: no complaints baby status: doing well OB - PN: Obj Data Labs CBC & Chem 7: 07/30/21 04:18 OB - PN A/P Plan day: 1 Plan: routine care and discharge home (F/U in 4 weeks.) Time Spent With Patient Time: Total time spent is greater than 50% in coordination of care (as documented) at patient's floor/unit and/or counseling patient: Time with patient: less than 15 minutes Review of Systems Review of Systems: All systems reviewed & are unremarkable except as noted in HPI and below Exam Narrative: Fundus firm and vaginal flow controlled. No lower ext redness, warmth, or edema. Negative homans. Const: General: comfortable Chest: Breast/axilla inspection: normal inspection of the breasts Resp: Effort & Inspection: normal respiratory effort Cardio: Rate: regular rate GI: GI Palp: Yes Soft to palpation Psych: Appearance: grossly normal Affect: normal affect Attitude: cooperative Thought content: Yes Normal thought content present Judgement: Good judgement present (Psych)
--- NOTE | 2021-07-31 07:55 | PC.NURSE ---
PT introductions made and plan of care discussed per post , pain management, bottle feeding, daily care activities and pending discharge to home. PT and significant other both recipients of such instructions this shift. PT received instructions per one to one discussion, mom baby care guide and demonstrations. No barriers to learning identified at this time. PT verbalized understanding of such care.
[2021-07-31 08:10] VITALS: BP 123/80; PULSE 56; RESP 16; TEMP 36.3; O2SAT 98
[2021-07-31 10:00] VITALS: PULSE 56; RESP 16; O2SAT 98
--- NOTE | 2021-07-31 10:30 | PC.NURSE ---
PT received discharged instructions per protocol and verbalized understanding of such care.
[2021-07-31] MEDS: DOCUSATE SODIUM 100 MG CAPSULE PO (10:51)
[2021-07-31] MEDS: POLYSACCHARIDE IRON COMPLEX 150 MG CAPSULE PO (10:51)
[2021-07-31] MEDS: MULTIVIT/MIN/PREN/FOL AC/IRON TABLET 1 TAB PO (10:51)
--- NOTE | 2021-07-31 11:00 | PC.NURSE ---
PT discharged to home ambulatory accompanied by significant other and and taken to waiting car. Follow up appts confirmed
[2021-08-01 07:19] LABS: Rapid Plasma Reagin Non-Reactive (NonReactive)
[2021-08-01 10:02] VITALS: BP 128/82; PULSE 62; RESP 16; TEMP 37.1; O2SAT 100
--- NOTE | 2021-08-14 12:29 | PM.OBDSVD ---
DS: Admitting Diagnosis Discharge Date 07/31/21 Admitting Diagnosis Labor OB - DS: Summary OB Procedures : None OB Procedures Intrapartum: Spontaneous Vag Delivery OB Procedures: : None Time Spent with Patient Time attestation: Total time spent providing and/or coordinating discharge services: DS: Data Data Completed and Pending Completed studies during hospitalization: Pending at discharge 07/29/21 01:17 Surgical [PTH] Routine Discharge Plan Discharge Attending physician on discharge: Zulay Hdz Consulting providers: Cony Bush ; Zulay Hdz Discharging Clinician: Cony Bush Patient Disposition: Home, Self-Care Activity: pelvic rest Diet: as tolerated Discharge Instructions: Education: Mom and Baby Guide Given to: Mother Follow-Up: Call your delivering provider's office for an appointment to be seen in: 4 Weeks Mom and baby should come to the [facility] for the follow-up appointment. Appointment Date/Time: August 01, 2021 at 10:00 am What to expect at your follow-up visit: Blood Pressure Check Call [phone] if you are unable to keep your appointment time. BREAST CARE: * Wear a snug supportive bra. * For engorgement discomfort: Bottle Feeding: * May apply ice packs PERINEAL CARE: * Until bleeding stops, use your alex bottle after urinating * Change your pad frequently throughout the day * You may take sitz baths several times a day (fill your bathtub with warm water and soak for 20 minutes.) Do NOT bathe in the water * No tub baths until seen by your physician - You may shower ACTIVITY: * Rest as much as possible. * Do not exercise or lift anything heavier than your baby (such as laundry or other children.) * Avoid stairs or driving as much as possible. * Do not put anything into the vagina. No douching, tampons, or sexual activity until seen by physician. NOTIFY PHYSICIAN IF YOU HAVE ANY QUESTIONS OR IF ANY OF THE FOLLOWING SYMPTOMS OCCUR: * If your perineum becomes red, swollen, or more painful than what you have experienced in the hospital. * If your vaginal bleeding becomes foul smelling. * If your vaginal bleeding becomes more heavy than a period or if your bleeding changes from pink to bright red. However, you may pass an occasional walnut-sized clot once or twice for the first week . * If you experience a sharp, shooting pain in you calves. * If you discover a hard, reddened area on your breast or if you experience flu-like symptoms. * If you have a fever of 100.4 or greater DIET: * Eat regular, well-balanced meals. * Drink plenty of fluids daily. If , drink to thirst. Patient Instructions: Antibiotic Form Stand Alone Forms: General Discharge Information Follow-up/Referrals: Zulay Hdz CNM [Certified Nurse Ship'S Captain] - Discharge Medications: Continued PNV [id number] [] 28 mg iron- 800 mcg Tablet 1 tablet PO DAILY RF: 0 Date of admission: 07/28/21 22:57 Primary Care Provider: PHYSICIAN,PHOTOVOLTAIC SOLAR CELL DESIGNER Admitting Provider: Oscar Newton Attending physician on admission: Oscar Newton Condition: Stable
== END 2021-07-31 11:00 | disposition home or self-care (01) | DRG 560 ==
LOC: ANHLDR 23:18 → ANHOB2 07-29 05:14
PROVIDERS: Advanced Practice Midwife; Admitting Provider Obstetrics & Gynecology; Visit Provider Obstetrics & Gynecology
DX: O60.14X0 Preterm labor third trimester with preterm delivery third trimester, not applicable or unspecified (principal); O13.4 Gestational [pregnancy-induced] hypertension without significant proteinuria, complicating childbirth; O69.2XX0 Labor and delivery complicated by other cord entanglement, with compression, not applicable or unspecified; O62.3 Precipitate labor; O76 Abnormality in fetal heart rate and rhythm complicating labor and delivery; Z3A.36 36 weeks gestation of pregnancy; Z37.0 Single live birth
CPT/HCPCS: 36415; 85014; 85018; 85025; 86592; 86850; 86900; 86901; 88307; A9270; J2590

== ENCOUNTER 2022-10-28 10:18 | Observation (INO) | payer OTHER, SELFPAY ==
[2022-10-28] VITALS (36 sets, daily range): BP systolic 113–126; BP diastolic 65–76; PULSE 56–100; TEMP 36.6–36.7; O2SAT 99–100; BMI 24.8
--- NOTE | 2022-10-28 10:50 | OBADM ---
This patient, Michaela A Plasters, admitted to the OB room 116 for observation. Patient/family oriented to hospital policies and general routines including ID bracelet, bed and alarms, visiting hours, pain management, procedures, bathroom and other care routines, personal items, smoking policy, room service/diet, and visiting hours. Patient/Family are encouraged to report perceived risks to care and to ask questions if they do not understand what they are told or what they should do.
[2022-10-28 11:47] LABS: Appearance Urine Clear (Clear); Bilirubin Urine Negative (Negative); Blood Urine Negative (Negative); Color Urine Light Yellow (Yellow); Glucose Urine UA Negative (Negative); Ketones Urine Negative (Negative); Leukocyte Esterase Ur Negative LEU/UL (Negative); Nitrate Urine Negative (Negative); Protein Urine Negative (Negative); Specific Grav Ur 1.015 (1.001-1.035); Urobilinogen Urine 0.2 mg/dL (<2.0)
[2022-10-28 11:51] LABS: Add Urine Microscopic? NO
[2022-10-28] MEDS: TERBUTALINE SULFATE 1 MG/ML VIAL 0.25 MG SUB-Q (12:35)
[2022-10-28] MEDS: BETAMETHASONE SOD PHOS/ACETATE 30 MG/5 ML VIAL 12 MG IM (12:36)
[2022-10-28 13:39] LABS: Fetal Fibronectin Negative
--- NOTE | 2022-10-30 07:25 | P.PNOB_ITS ---
OB - Triage/Final Diagnosis Visit Information Date of evaluation: 10/28/22 Reason for evaluation: threatened labor Comments/Additional reasons for admission: I have assessed the risk for this patient, Michaela A Plasters, and determined that she would benefit from observation care. Evaluation Laboratory results: Laboratory Tests 10/28/22 10/28/22 11:34 12:49 Urine Color Light yellow Urine Appearance Clear Urine pH 7.0 Ur Specific [place] 1.015 Urine Protein Negative Urine Glucose (UA) Negative Urine Ketones Negative Ur Blood (Man) Negative Urine Nitrate Negative Urine Bilirubin Negative Urine Urobilinogen 0.2 Leukocyte Esterase Rfl Negative Fibronectin Negative
== END 2022-10-28 15:38 | disposition home or self-care (01) ==
PROVIDERS: Advanced Practice Midwife; Admitting Provider Obstetrics & Gynecology; Visit Provider Obstetrics & Gynecology
DX: O47.03 False labor before 37 completed weeks of gestation, third trimester (principal); Z3A.31 31 weeks gestation of pregnancy
CPT/HCPCS: 81003; 82731; 96372; G0378; G0379; J0702; J3105

== ENCOUNTER 2022-10-29 12:45 | Outpatient (CLI) | payer OTHER, SELFPAY ==
[2022-10-29] MEDS: BETAMETHASONE SOD PHOS/ACETATE 30 MG/5 ML VIAL 12 MG IM (13:01)
== END 2022-10-29 12:46 | disposition home or self-care (01) ==
LOC: ANHOBOP 12:51
PROVIDERS: Visit Provider Advanced Practice Midwife
DX: O47.9 False labor, unspecified (principal); Z3A.00 Weeks of gestation of pregnancy not specified
CPT/HCPCS: 96372; J0702

== ENCOUNTER 2022-11-30 11:40 | Observation (INO) | payer OTHER, SELFPAY ==
--- NOTE | ~2022-11-30 | US_ITS ---
US OB limited w BPP DATE: 11/30/2022 13:02 INDICATION: Vaginal bleeding TECHNIQUE: Real-time imaging and Doppler analysis COMPARISON: None FINDINGS: Live [place] intrauterine gestation, fetus in vertex presentation, longitudinal lie, with 141 bpm heart rate. Posterofundal placenta. Amniotic fluid index measures 18.9 cm. (5th percentile SEAN: 7.7 cm; 95th percentile SEAN: 24.9 cm). BIOPHYSICAL PROFILE reported by donor technician: breathin out of 2 movement: 2 out of 2 tone: 2 out of 2 Amniotic fluid pocket: 2 out of 2 Total score: 8 out of 8 IMPRESSION: Normal biophysical profile score of 8 out of 8 Amniotic fluid index measures 18.9 cm, within normal range Reviewed, dictated and finalized at [facility]. Reviewed, dictated and finalized at location B.
[2022-11-30 11:38] VITALS: BP 130/64; PULSE 66
[2022-11-30 12:09] LABS: Appearance Urine Clear (Clear); Bacteria Urine None Seen /hpf; Bilirubin Urine Negative (Negative); Blood Urine 2+ (Negative); Color Urine Yellow (Yellow); Glucose Urine UA Negative (Negative); Ketones Urine Negative (Negative); Leukocyte Esterase Ur 1+ LEU/UL (Negative); Nitrate Urine Negative (Negative); Non Pathogenic Casts 0-2; Protein Urine Negative (Negative); RBC Urine 0-2 /hpf (0-2); Specific Grav Ur 1.007 (1.001-1.035); Squamous Epithelial Cell Urine None seen /hpf (Few); Urobilinogen Urine 0.2 mg/dL (<2.0); pH Urine 7.5 (5.0-9.0)
[2022-11-30 12:19] LABS: Add Urine Microscopic? YES
[2022-11-30 12:33] VITALS: BP 132/78; PULSE 67
--- NOTE | 2022-11-30 12:35 | PC.NURSE ---
1224: RN informed CNM of pt's complaints, SVE, contraction pattern of occasional contractions, and FHT of Category 1, and negative results of ROM Plus. CNM informed that patient is spotting. Orders to obtain a bedside ultrasound with BPP, SEAN, and placenta check.
[2022-11-30 12:46] VITALS: BP 120/70; PULSE 57
[2022-11-30 13:26] VITALS: BP 126/71; PULSE 60
--- NOTE | 2022-11-30 16:18 | PC.NURSE ---
1519: RN called CNM to give her an update on pt. RN informed CNM that patient is complaining of vaginal pressure and possible leaking. RN informed CNM that patient is having brown and red discharge, having contractions about every 4-7 min, and FHT are category 1. Orders to continue monitoring patient for a couple of hours and monitor discharge/bleeding. 1615: CNM phoned in for status. RN reported to CNM pt's contraction pattern, FHTs, pain scale, VS, and bleeding update. Pt stated her brown discharge started around 8 pm yesterday, turned pinkish/red today, and now has turned back to brown. Blood is only spotted when wiping and during SVEs. Orders to keep monitoring patient until CNM consults with OB. 1624: CNM called RN. Orders to discharge patient home. Orders for pelvic rest and patient to come back to the hospital if bright red bleeding starts back up.
[2022-11-30 16:35] VITALS: BMI 26.4
--- NOTE | 2022-11-30 16:35 | OBADM ---
This patient, Michaela A Plasters, admitted to the OB room Labor/Delivery/Recovery 105 for observation. Patient/family oriented to hospital policies and general routines including ID bracelet, bed and alarms, visiting hours, pain management, procedures, bathroom and other care routines, personal items, smoking policy, room service/diet, and visiting hours. Patient/Family are encouraged to report perceived risks to care and to ask questions if they do not understand what they are told or what they should do.
--- NOTE | 2022-12-01 18:44 | P.PNOB_ITS ---
OB - Triage/Final Diagnosis Visit Information Date of evaluation: 11/30/22 Reason for evaluation: other (leaking) Comments/Additional reasons for admission: I have assessed the risk for this patient, Michaela A Plasters, and determined that she would benefit from observation care. Evaluation Laboratory results: Laboratory Tests 11/30/22 11:58 Urine Color Yellow Urine Appearance Clear Urine pH 7.5 Ur Specific [place] 1.007 Urine Protein Negative Urine Glucose (UA) Negative Urine Ketones Negative Ur Blood (Man) 2+ H Urine Nitrate Negative Urine Bilirubin Negative Urine Urobilinogen 0.2 Leukocyte Esterase Rfl 1+ H Urine RBC 0-2 Urine WBC 6-10 H Ur Squamous Epith Cells None seen Urine Bacteria None seen Urine Casts 0-2
== END 2022-11-30 16:43 | disposition home or self-care (01) ==
PROVIDERS: Advanced Practice Midwife; Admitting Provider Obstetrics & Gynecology; Visit Provider Obstetrics & Gynecology
DX: O42.90 Premature rupture of membranes, unspecified as to length of time between rupture and onset of labor, unspecified weeks of gestation (principal); O26.859 Spotting complicating pregnancy, unspecified trimester
CPT/HCPCS: 76815; 76819; 81001; 87086; G0378; G0379

== ENCOUNTER 2022-12-05 09:22 | Inpatient (IN) | payer OTHER, SELFPAY ==
[2022-12-05] VITALS (86 sets, daily range): BP systolic 95–153; BP diastolic 51–112; PULSE 49–103; RESP 16–18; TEMP 36.6–36.9; O2SAT 95–100
--- NOTE | 2022-12-05 09:40 | WPDOBADMIT ---
Obstetrics - Admit Note Admission Note: record reviewed. No pertinent additions to the history and/or any subsequent changes in the physical findings that are not consistent with the expected course of the were found. SROM this am SVE by RN 4-5cm, clear odorless fluid, anticipate vaginal delivery Additions to the history and/or subsequent changes in the physical findings follow. None.
[2022-12-05 10:03] LABS: Basophils Absolute Auto 0.1 K/mm3 (0.0-0.1); Basophils Percent Auto 0.5 % (0.2-1.2); Eosinophils Absolute Auto 0.1 K/mm3 (0-0.3); Eosinophils Percent Auto 0.8 % (0-4.4); Hematocrit 34.1 % (37.0-47.0); Immature Granulocyte Absolute 0.09 K/mm3 (0.00-0.031); Immature Granulocyte Percent A 0.9 % (0-0.5); Lymphocytes Absolute Auto 1.45 K/mm3 (0.9-3.2); Lymphocytes Percent Auto 15.1 % (18.3-44.2); Mean Corpuscular HGB Conc 32.3 g/dl (32-36); Mean Corpuscular Hemoglobin 27.6 pg (26-34); Mean Corpuscular Volume 85.5 fl (80-100); Monocytes Absolute Auto 0.7 K/mm3 (0.1-0.6); Monocytes Percent Auto 7.5 % (2.6-8.5); Neutrophils Absolute Auto 7.2 K/mm3 (1.3-6.7); Neutrophils Percent Auto 75.2 % (45.5-73.1); Platelet Count Result 158 k/mm3 (150-375); Red Blood Count 3.99 M/mm3 (4.2-5.4); Red Cell Distribution Width 15.1 % (11.5-14.5); White Blood Count 9.6 K/mm3 (4.5-10.0)
--- NOTE | 2022-12-05 10:03 | LDADM ---
This patient, Michaela A Plasters, was admitted to Labor/Delivery/Recovery 105 on 12/05/22 at 09:22. Plans for labor, pain management and were discussed with patient. Patient/family oriented to hospital policies and general routines including ID bracelet, bed and alarms, visiting hours, pain management, procedures, bathroom and other care routines, personal items, smoking policy, room service/diet and guest tray routines, security routines, and visiting hours. Patient/Family are encouraged to report perceived risks to care and to ask questions if they do not understand what they are told or what they should do. See OBIX for further documentation.
[2022-12-05] MEDS: LACTATED RINGERS 1,000 ML 999 ML IV CONT ×2 (10:21→10:39)
[2022-12-05 11:05] LABS: HIV 1/2 Ab P24 Ag Result Negative (Negative)
--- NOTE | 2022-12-05 11:16 | WPDANESEPP ---
Anes - Eval Pre Procedure Procedure: labor pain management Date/Time: 12/05/22 11:16 Surgeon: Lamar Preop Diagnosis: pain during labor Pre Op Diagnosis: Leaking Patient Data Age: 27 Gender: F Height: Weight: Last Vital Signs Temp 98.4 F 12/05/22 09:46 Pulse 67 12/05/22 11:16 BP 119/65 12/05/22 11:16 Pulse Ox 95 12/05/22 11:13 Allergies Allergy/AdvReac Type Severity Reaction Status Date / Time No Known Allergies Allergy Unknown Verified 07/29/21 00:05 Home Medications Medication Instructions Recorded Confirmed Type vit no.95-ferrous 1 tablet PO DAILY 06/26/21 10/28/22 History fumarate 28 mg-folic acid 800 mcg tablet () aspirin 81 mg capsule 81 mg PO DAILY 10/28/22 10/28/22 History ferrous sulfate 142 mg (45 mg 142 mg PO DAILY 10/28/22 10/28/22 History iron) tablet,extended release (Slow Fe) nifedipine 30 mg tablet,extended 30 mg PO Q12H #60 tabs 10/28/22 Rx release Laboratory Tests 12/05/22 12/05/22 12/05/22 09:53 09:53 09:53 WBC 9.6 K/mm3 K/mm3 (4.5-10.0) RBC 3.99 M/mm3 L M/mm3 (4.2-5.4) Hgb 11.0 g/dL L g/dL (12.0-15.0) Hct 34.1 % L % (37.0-47.0) MCV 85.5 fl fl (80-100) MCH 27.6 pg pg (26-34) MCHC 32.3 g/dl g/dl (32-36) RDW 15.1 % H % (11.5-14.5) Plt Count 158 k/mm3 k/mm3 (150-375) MPV 10.0 fl fl (7.4-10.4) Immature Gran % (Auto) 0.9 % H % (0-0.5) Neut % (Auto) 75.2 % H % (45.5-73.1) Lymph % (Auto) 15.1 % L % (18.3-44.2) [place] % (Auto) 7.5 % % (2.6-8.5) Eos % (Auto) 0.8 % % (0-4.4) Baso % (Auto) 0.5 % % (0.2-1.2) Lymph # (Auto) 1.45 K/mm3 K/mm3 (0.9-3.2) [place] # (Auto) 0.7 K/mm3 H K/mm3 (0.1-0.6) Eos # (Auto) 0.1 K/mm3 K/mm3 (0-0.3) Baso # (Auto) 0.1 K/mm3 K/mm3 (0.0-0.1) Abs Immat Gran (auto) 0.09 K/mm3 H K/mm3 (0.00-0.031) Absolute Neuts (auto) 7.2 K/mm3 H K/mm3 (1.3-6.7) Absolute Nucleated RBC 0.0 K/mm3 K/mm3 (0.0-0.012) Nucleated RBC % 0.0 % % (0.0-0.2) RPR Pending HIV 1&2 Ab/P24 Ag 4thGn Negative (Negative) Patient hx anesthesia problems: none Family hx anesthesia problems: none Results Review: All pre-operative results and documents have been reviewed as part of the pre-operative evaluation. [facility] Past Medical History Medical History Depression Surgical History Surgical History No pertinent past surgical history Social History Social History Smoking status: Never smoker Second hand tobacco smoke exposure: No Alcohol intake: never Substance use: never Lack of Transportation: No Lack of Food: Never True Current Housing: I Have Housing Concerned About Future Housing: No Difficulty Paying Gas/Electric Bills: No Difficulty Paying for Meds: No Currently Unemployed: No Education: High School Diploma/GED Difficulty w/ Childcare or Family Care: No Gender identity (if verbalized by the patient): Female Spiritual care concerns: No Exam Day of Procedure 12/05/22 11:16
[2022-12-05] MEDS: OXYTOCIN 30 UNITS/NS 500 ML 30 UNITS/500 ML BAG IV CONT (11:31)
[2022-12-05] MEDS: LACTATED RINGERS 1,000 ML 125 ML IV CONT (13:53)
--- NOTE | 2022-12-05 14:28 | PM.OBPRVD ---
OB - Delivery Note Procedure Delivery date: 12/05/22 Procedure: Delivery augmentation: Pitocin Delivery monitor: External FHT and External Uterine Route of delivery: Laceration Description: None Specimen: No Quantitative Blood Loss (ml): 135 Anesthesia type: Epidural Disposition: Floor Baby Date of : 12/05/22 Time of : 14:17 Weeks of gestation at delivery: 37 gender: Female Weight (pounds): 6 Weight (ounces): 4 presentation: vertex position: Left Occiput Anterior Placenta delivery description: Spontaneous Cord Vessel Description: 3 Vessels score one minute: 9 score five minutes: 9 Narrative: Mother and baby skin to skin in stable condition
[2022-12-05] MEDS: OXYTOCIN 30 UNITS/NS 500 ML 30 UNITS/500 ML BAG 125 UNITS IV CONT (14:50)
[2022-12-06] MEDS: IBUPROFEN 600 MG TABLET PO ×2 (01:48→10:15)
[2022-12-06 04:40] VITALS: BP 122/74; PULSE 61; RESP 16; TEMP 36.8
[2022-12-06 04:55] LABS: Hematocrit 29.1 % (37.0-47.0); Hemoglobin 9.3 g/dL (12.0-15.0)
--- NOTE | 2022-12-06 08:26 | WPDANLDPN2 ---
Anes-Prog Note L&D Date/Time: 12/06/22 08:26 Comfortable throughout: labor and delivery Neuraxial method: epidural Epidural/Spinal procedure site: tender Neuro status: Neuro function grossly intact. Cardiovascular status: normal Respiratory status: normal Airway patency: baseline Mental status: baseline Post-Op hydration status: normal Vital Signs: Last Vital Signs Temp 98.3 F 12/06/22 04:40 Pulse 61 12/06/22 04:40 Resp 16 12/06/22 04:40 BP 122/74 12/06/22 04:40 Pulse Ox 100 12/05/22 16:50 O2 Del Method Room Air 12/05/22 21:00 Pain score (VAS): 0 I/O: Intake & Output 12/05/22 12/06/22 12/06/22 23:59 07:59 15:59 Intake Total 240 Output Total 765 Balance -525 Post-procedural complaints: none Patient feedback: Patient satisfied with anesthetic care.
[2022-12-06 10:00] VITALS: BP 112/73; PULSE 55; PULSE 61; RESP 14; RESP 16; TEMP 37.1; O2SAT 100; O2SAT 98
[2022-12-06] MEDS: DOCUSATE SODIUM 100 MG CAPSULE PO (10:15)
[2022-12-06] MEDS: MULTIVIT/MIN/PREN/FOL AC/IRON TABLET 1 TAB PO (10:15)
[2022-12-06] MEDS: POLYSACCHARIDE IRON COMPLEX 150 MG CAPSULE PO (10:15)
--- NOTE | 2022-12-06 13:18 | PM.OBPNVD ---
OB - PN: Subj Subjective Date/time seen: 12/06/22 13:18 Patient comments: no complaints baby status: doing well OB - PN: Obj Data Labs 12/06/22 04:45 Labs: Laboratory Results - last 24 hr 12/06/22 04:45 Hgb 9.3 L Hct 29.1 L OB - PN A/P Plan day: 2 Plan: routine care and discharge home (F/U in 4 weeks) Time Spent With Patient Time: Total time spent is greater than 50% in coordination of care (as documented) at patient's floor/unit and/or counseling patient: Time with patient: less than 15 minutes Review of Systems Review of Systems: All systems reviewed & are unremarkable except as noted in HPI and below Exam Narrative: Fundus firm and vaginal flow controlled. No lower ext redness, warmth, or edema. Negative homans. Const: General: comfortable Chest: Breast/axilla inspection: normal inspection of the breasts Resp: Effort & Inspection: normal respiratory effort Cardio: Rate: regular rate GI: GI Palp: Yes Soft to palpation Psych: Appearance: grossly normal Affect: normal affect Attitude: cooperative Thought content: Yes Normal thought content present Judgement: Good judgement present (Psych)
--- NOTE | 2022-12-06 13:19 | P.DS_ITS ---
DS: Admitting Diagnosis Discharge Date 12/06/22 Admitting Diagnosis Labor DS: Discharge Diagnosis Discharge Diagnosis (1) Vaginal delivery: Code(s): O80 - Encounter for full-term uncomplicated delivery Status: Acute OB - DS: Summary OB Procedures : None OB Procedures Intrapartum: Spontaneous Vag Delivery OB Procedures: : None Time Spent with Patient Time attestation: Total time spent providing and/or coordinating discharge services: DS: Data Data Completed and Pending Labs on day of discharge: Labs from last 24 hours 12/06/22 04:45 Hgb 9.3 L Hct 29.1 L Discharge Plan Discharge Attending physician on discharge: Zulay Hdz Discharging Clinician: Zulay Hdz Patient Disposition: Home, Self-Care Activity: pelvic rest Diet: as tolerated Patient Instructions: Antibiotic Form Stand Alone Forms: General Discharge Information Follow-up/Referrals: Zulay Hdz, CNM [Certified Nurse Nuclear Plant Instrument Technician] - Discharge Medications: Continued PNV cmb#95-ferrous fumarate-FA [] 28 mg iron- 800 mcg Tablet 1 tablet PO DAILY Slow Fe 142 mg (45 mg iron) Tablet Extended Release 142 mg PO DAILY aspirin 81 mg Capsule 81 mg PO DAILY Date of admission: 12/05/22 09:22 Primary Care Provider: UNKNOWN,DOCTOR Admitting Provider: Oscar Newton Attending physician on admission: Zulay Hdz Condition: Stable
--- NOTE | 2022-12-06 15:59 | PC.NURSE ---
Patient was given the opportunity to view the discharge video Mother & Baby Care, The First Two Weeks and to ask questions. Patient declined viewing the video and has been given the mother/baby guide for home reference.
[2022-12-07 13:47] LABS: Rapid Plasma Reagin Non-Reactive (NonReactive)
[2022-12-08 10:29] VITALS: BP 113/53; PULSE 54; RESP 16; TEMP 37.1; O2SAT 98
== END 2022-12-06 15:50 | disposition home or self-care (01) | DRG 807 ==
LOC: ANHOB2 12-06 14:36 → ANHLDR 12-07 12:12 → ANHOB2 12-07 12:12
PROVIDERS: Advanced Practice Midwife; Admitting Provider Obstetrics & Gynecology; Visit Provider Advanced Practice Midwife
DX: O80 Encounter for full-term uncomplicated delivery (principal); Z37.0 Single live birth; Z3A.37 37 weeks gestation of pregnancy
CPT/HCPCS: 36415; 85014; 85018; 85025; 86592; 86703; 86850; 86900; 86901; A9270; G0432; J2590; J2795; J7120

== ENCOUNTER 2024-03-10 14:47 | Outpatient (RCR) | payer OTHER, SELFPAY ==
[2024-03-09] MEDS: BETAMETHASONE SOD PHOS/ACETATE 30 MG/5 ML VIAL 12 MG IM (14:34)
[2024-03-10] MEDS: BETAMETHASONE SOD PHOS/ACETATE 30 MG/5 ML VIAL 12 MG IM (14:51)
== END 2024-06-07 23:59 | disposition home or self-care (01) ==
LOC: ANHOBOP 14:47
PROVIDERS: Visit Provider Advanced Practice Midwife
DX: O09.299 Supervision of pregnancy with other poor reproductive or obstetric history, unspecified trimester (principal); Z3A.00 Weeks of gestation of pregnancy not specified
CPT/HCPCS: 96372; J0702

== ENCOUNTER 2024-04-21 16:08 | Observation (INO) | payer OTHER, SELFPAY ==
--- NOTE | 2024-04-21 13:30 | OBADM ---
This patient, Michaela A Plasters, admitted to the OB room OB Post 116 for observation. Patient/family oriented to hospital policies and general routines including ID bracelet, bed and alarms, visiting hours, pain management, procedures, bathroom and other care routines, personal items, smoking policy, room service/diet, and visiting hours. Patient/Family are encouraged to report perceived risks to care and to ask questions if they do not understand what they are told or what they should do.
[2024-04-21 14:45] VITALS: BP 120/68; PULSE 62
[2024-04-21] MEDS: NIFEdipine 10 MG CAPSULE PO (14:49)
--- NOTE | 2024-04-24 12:00 | PM.OBTRLD ---
OB - Triage/Final Diagnosis Visit Information Date of evaluation: 04/21/24 Reason for evaluation: threatened labor Comments/Additional reasons for admission: I have assessed the risk for this patient, Michaela A Plasters, and determined that she would benefit from observation care.
== END 2024-04-21 16:19 | disposition home or self-care (01) ==
PROVIDERS: Admitting Provider Obstetrics & Gynecology; Visit Provider Obstetrics & Gynecology
DX: O47.03 False labor before 37 completed weeks of gestation, third trimester (principal); Z3A.35 35 weeks gestation of pregnancy
CPT/HCPCS: 99199; A9270

== ENCOUNTER 2024-05-03 08:46 | Outpatient (CLI) | payer OTHER, SELFPAY ==
[2024-05-03 09:10] VITALS: BP 128/83; PULSE 78
[2024-05-03 09:29] LABS: Basophils Percent Auto 0.3 % (0.2-1.2); Eosinophils Absolute Auto 0.1 K/mm3 (0-0.3); Eosinophils Percent Auto 1.7 % (0-4.4); Hematocrit 33.6 % (37.0-47.0); Hemoglobin 10.4 g/dL (12.0-15.0); Immature Granulocyte Absolute 0.03 K/mm3 (0.00-0.031); Immature Granulocyte Percent A 0.5 % (0-0.5); Lymphocytes Absolute Auto 1.31 K/mm3 (0.9-3.2); Lymphocytes Percent Auto 19.8 % (18.3-44.2); Mean Corpuscular Hemoglobin 25.7 pg (26-34); Mean Corpuscular Volume 83.2 fl (80-100); Monocytes Absolute Auto 0.4 K/mm3 (0.1-0.6); Monocytes Percent Auto 5.6 % (2.6-8.5); Neutrophils Absolute Auto 4.8 K/mm3 (1.3-6.7); Neutrophils Percent Auto 72.1 % (45.5-73.1); Platelet Count Result 153 k/mm3 (150-375); Red Blood Count 4.04 M/mm3 (4.2-5.4); Red Cell Distribution Width 14.7 % (11.5-14.5); White Blood Count 6.6 K/mm3 (4.5-10.0)
[2024-05-03 09:30] VITALS: BP 127/83; PULSE 75
[2024-05-03 09:45] VITALS: BP 118/79; PULSE 79
[2024-05-03 09:46] LABS: Alanine Aminotransferase 12 U/L (6-35); Albumin Level 3.5 g/dL (3.5-5.1); Alkaline Phosphatase 163 U/L (38-126); Anion Gap 10 mmol/L (4-12); Aspartate Amino Transferase 19 U/L (14-36); Bilirubin,Total 0.5 mg/dL (0.2-1.3); Blood Urea Nitrogen 6 mg/dL (7-17); Calcium 8.4 mg/dL (8.4-10.2); Carbon Dioxide 22 mmol/L (22-30); Chloride 103 mmol/L (98-107); Estimated Glomerular Filt Rate > 60; Glucose 100 mg/dL (65-110); Potassium 3.5 mmol/L (3.4-5.0); Sodium 135 mmol/L (137-145); Uric Acid 4.6 mg/dL (2.5-7.5)
[2024-05-03 10:00] VITALS: BP 118/75; PULSE 76
[2024-05-03 10:15] VITALS: BP 112/79; PULSE 77
[2024-05-03 10:22] LABS: Add Urine Microscopic? YES; Appearance Urine Clear (Clear); Bacteria Urine None Seen /hpf; Bilirubin Urine Negative (Negative); Blood Urine Negative (Negative); Color Urine Yellow (Yellow); Creatinine Urine 90.1 mg/dL; Glucose Urine UA Negative (Negative); Ketones Urine Negative (Negative); Leukocyte Esterase Ur 1+ LEU/UL (Negative); Nitrate Urine Negative (Negative); Non Pathogenic Casts 0-2; Protein Urine Negative (Negative); RBC Urine 0-2 /hpf (0-2); Specific Grav Ur 1.012 (1.001-1.035); Squamous Epithelial Cell Urine Occasional /hpf (Few); Total Protein Urine Random 12 mg/dL; Ur Ttl Prot Creatinine Ratio 0.13 mg/mg (0-0.20)
[2024-05-03 10:30] VITALS: BP 115/73; PULSE 70
== END 2024-05-03 10:45 | disposition home or self-care (01) ==
LOC: ANHOBOP 08:52 → ANHOBPP 08:52
PROVIDERS: Visit Provider Advanced Practice Midwife
DX: O13.9 Gestational [pregnancy-induced] hypertension without significant proteinuria, unspecified trimester (principal); Z3A.00 Weeks of gestation of pregnancy not specified
CPT/HCPCS: 36415; 59025; 80053; 81001; 82570; 84156; 84550; 85025; 87086; 99199

== ENCOUNTER 2024-05-12 11:32 | Inpatient (IN) | payer OTHER, SELFPAY ==
[2024-05-12] VITALS (38 sets, daily range): BP systolic 101–158; BP diastolic 62–99; PULSE 48–81; RESP 18; TEMP 36.2–36.7; O2SAT 98–100
[2024-05-12 12:13] LABS: Basophils Percent Auto 0.4 % (0.2-1.2); Eosinophils Absolute Auto 0.1 K/mm3 (0-0.3); Eosinophils Percent Auto 1.5 % (0-4.4); Hematocrit 31.3 % (37.0-47.0); Hemoglobin 9.9 g/dL (12.0-15.0); Immature Granulocyte Absolute 0.04 K/mm3 (0.00-0.031); Immature Granulocyte Percent A 0.5 % (0-0.5); Lymphocytes Percent Auto 19.9 % (18.3-44.2); Mean Corpuscular HGB Conc 31.6 g/dl (32-36); Mean Corpuscular Hemoglobin 25.5 pg (26-34); Mean Corpuscular Volume 80.7 fl (80-100); Mean Platelet Volume 9.9 fl (7.4-10.4); Monocytes Absolute Auto 0.5 K/mm3 (0.1-0.6); Monocytes Percent Auto 6.9 % (2.6-8.5); Neutrophils Absolute Auto 5.3 K/mm3 (1.3-6.7); Neutrophils Percent Auto 70.8 % (45.5-73.1); Platelet Count Result 168 k/mm3 (150-375); Red Blood Count 3.88 M/mm3 (4.2-5.4); Red Cell Distribution Width 14.8 % (11.5-14.5); White Blood Count 7.5 K/mm3 (4.5-10.0)
[2024-05-12] MEDS: LACTATED RINGERS 1,000 ML 125 ML IV CONT ×2 (12:24→13:32)
[2024-05-12] MEDS: OXYTOCIN 30 UNITS/NS 500 ML 30 UNITS/500 ML BAG IV CONT (12:24)
[2024-05-12 12:42] LABS: Rapid Plasma Reagin Non-Reactive (NonReactive)
--- NOTE | 2024-05-12 12:47 | WPDOBADMIT ---
Obstetrics - Admit Note Admission Note: record reviewed. No pertinent additions to the history and/or any subsequent changes in the physical findings that are not consistent with the expected course of the were found. Additions to the history and/or subsequent changes in the physical findings follow. IOL for thrid trimester vaginal bleeding, SVE 4-5/90/0, AROM scant clear, odorless fluid, anticipate vaginal delivery
[2024-05-12 13:08] LABS: HIV 1/2 Ab P24 Ag Result Negative (Negative)
--- NOTE | 2024-05-12 13:52 | WPDANESEPPF ---
Anes - Initial Pre Proc Eval Procedure: labor epidural Date/Time: 05/12/24 13:52 Surgeon: Sachin Newton MD Pre Op Diagnosis: labor pain Pre Op Diagnosis: Labor Patient Data Age: 28 Gender: F Height: Weight: Last Vital Signs Pulse 57 L 05/12/24 13:52 BP 158/82 H 05/12/24 13:52 Pulse Ox 99 05/12/24 13:47 O2 Del Method Room Air 05/12/24 11:50 Allergies Allergy/AdvReac Type Severity Reaction Status Date / Time No Known Allergies Allergy Unknown Verified 07/29/21 00:05 Home Medications Medication Instructions Recorded Confirmed Type vit no.95-ferrous 1 tablet PO DAILY 06/26/21 05/12/24 History fumarate 28 mg-folic acid 800 mcg tablet () aspirin 81 mg capsule 81 mg PO DAILY 10/28/22 05/12/24 History ferrous sulfate 142 mg (45 mg 142 mg PO DAILY 10/28/22 05/12/24 History iron) tablet,extended release (Slow Fe) Laboratory Tests 05/12/24 11:45 WBC 7.5 K/mm3 (4.5-10.0) RBC 3.88 L M/mm3 (4.2-5.4) Hgb 9.9 L g/dL (12.0-15.0) Hct 31.3 L % (37.0-47.0) MCV 80.7 fl (80-100) MCH 25.5 L pg (26-34) MCHC 31.6 L g/dl (32-36) RDW 14.8 H % (11.5-14.5) Plt Count 168 k/mm3 (150-375) MPV 9.9 fl (7.4-10.4) Immature Gran % (Auto) 0.5 % (0-0.5) Neut % (Auto) 70.8 % (45.5-73.1) Lymph % (Auto) 19.9 % (18.3-44.2) [place] % (Auto) 6.9 % (2.6-8.5) Eos % (Auto) 1.5 % (0-4.4) Baso % (Auto) 0.4 % (0.2-1.2) Lymph # (Auto) 1.50 K/mm3 (0.9-3.2) [place] # (Auto) 0.5 K/mm3 (0.1-0.6) Eos # (Auto) 0.1 K/mm3 (0-0.3) Baso # (Auto) 0.0 K/mm3 (0.0-0.1) Abs Immat Gran (auto) 0.04 H K/mm3 (0.00-0.031) Absolute Neuts (auto) 5.3 K/mm3 (1.3-6.7) Absolute Nucleated RBC 0.000 K/mm3 (0.0-0.012) Nucleated RBC % 0.0 % (0.0-0.2) RPR Non-reactive (NonReactive) HIV 1&2 Ab/P24 Ag 4thGn Negative (Negative) Blood Type A Positive Antibody Screen Negative Patient hx anesthesia problems: none Family hx anesthesia problems: none Results Review: All pre-operative results and documents have been reviewed as part of the pre-operative evaluation. [facility] Past Medical History Medical History (Updated 12/06/22 @ 13:20 by Cony Bush, JOS) Depression Pain during labor Surgical History Surgical History No pertinent past surgical history Social History Social History Smoking status: Never smoker Second hand tobacco smoke exposure: No Alcohol intake: never Substance use: never Do You Feel Safe in your Home?: Yes Lack of Transportation: No Lack of Food: Never True Current Housing: I Have Housing Concerned About Future Housing: No Difficulty Paying Gas/Electric Bills: No Difficulty Paying for Meds: No Currently Unemployed: No Education: Don't Know Difficulty w/ Childcare or Family Care: No Gender identity (if verbalized by the patient): Female Spiritual care concerns: No Anes - Eval Final PreProcedure Day of Procedure 05/12/24 13:52 Patient weight: overweight ASA classification: II Anesthetic plan: proceed Anesthesia type and monitoring: regional epidural and standard monitoring Results Review: All pre-operative results and documents have been reviewed as part of the pre-operative evaluation. Informed Consent: The patient's anesthetic plan and its attendant risks and benefits were discussed with the patient/family/POA. Questions were solicited and answers provided to the satisfaction of the patient/family/POA.
[2024-05-12] MEDS: ONDANSETRON INJ 4 MG/2 ML VIAL IV PUSH (13:53)
--- NOTE | 2024-05-12 14:08 | PM.OBPRVD ---
OB - Vaginal Delivery Note Procedure Delivery date: 05/12/24 Induction method: AROM and Per Pitocin Protocol Delivery monitor: External FHT and External Uterine Route of delivery: Laceration Description: None Specimen: No Quantitative Blood Loss (ml): 75 Anesthesia type: Epidural Disposition: Floor Complications: No immediate complications Baby Date of : 05/12/24 Time of : 14:00 Gestational Age by Date: 38 Infant gender: Female presentation: vertex position: Left Occiput Anterior Placenta delivery description: Spontaneous Cord Vessel Description: 3 Vessels score one minute: 9 score five minutes: 9 Narrative: mother and baby skin to skin in stable condition
[2024-05-12] MEDS: OXYTOCIN 30 UNITS/NS 500 ML 30 UNITS/500 ML BAG 125 UNITS IV CONT (14:35)
[2024-05-12] MEDS: WITCH HAZEL 40 PADS 1 PAD TOPICAL (16:13)
[2024-05-12] MEDS: BENZOCAINE 20% AER SPR (*SP) 56 GM CAN 1 SPRAY TOPICAL (16:13)
[2024-05-12] MEDS: ACETAMINOPHEN 325 MG TABLET 650 MG PO (16:13)
--- NOTE | 2024-05-12 16:24 | OBPPTRN ---
Patient transferred to post room # 278 via wheelchair. Support person present. Oriented to unit, room, information board, rooming in, admission packet and security measures. Patient verbalizes understanding.
[2024-05-13 04:54] VITALS: BP 118/70; PULSE 55; RESP 16; TEMP 36.9; O2SAT 99
[2024-05-13 05:55] LABS: Hematocrit 28.9 % (37.0-47.0); Hemoglobin 8.9 g/dL (12.0-15.0)
[2024-05-13 07:20] VITALS: BP 109/67; PULSE 56; RESP 16; TEMP 37.2; O2SAT 99
[2024-05-13] MEDS: POLYSACCHARIDE IRON COMPLEX 150 MG CAPSULE PO (08:14)
[2024-05-13] MEDS: DOCUSATE SODIUM 100 MG CAPSULE PO (08:14)
[2024-05-13] MEDS: MULTIVIT/MIN/PREN/FOL AC/IRON TABLET 1 TAB PO (08:14)
--- NOTE | 2024-05-13 08:32 | PM.OBPNVD ---
OB - PN: Subj Subjective Date/time seen: 05/13/24 08:32 Patient comments: no complaints, pain well controlled, incisional pain, tolerating diet and flatus present OB - PN: Obj Data Labs 05/13/24 05:16 Labs: Laboratory Results - last 24 hr 05/12/24 05/13/24 11:45 05:16 WBC 7.5 RBC 3.88 L Hgb 9.9 L 8.9 L Hct 31.3 L 28.9 L MCV 80.7 MCH 25.5 L MCHC 31.6 L RDW 14.8 H Plt Count 168 MPV 9.9 Immature Gran % (Auto) 0.5 Neut % (Auto) 70.8 Lymph % (Auto) 19.9 [place] % (Auto) 6.9 Eos % (Auto) 1.5 Baso % (Auto) 0.4 Lymph # (Auto) 1.50 [place] # (Auto) 0.5 Eos # (Auto) 0.1 Baso # (Auto) 0.0 Abs Immat Gran (auto) 0.04 H Absolute Neuts (auto) 5.3 Absolute Nucleated RBC 0.000 Nucleated RBC % 0.0 RPR Non-reactive HIV 1&2 Ab/P24 Ag 4thGn Negative Blood Type A Positive Antibody Screen Negative OB - PN A/P Plan day: 1 Plan: routine care Comments: No problems, routine care Time Spent With Patient Time: Total time spent is greater than 50% in coordination of care (as documented) at patient's floor/unit and/or counseling patient: Exam Const: General: comfortable, no acute distress and alert Resp: Effort & Inspection: normal respiratory effort Auscultation: no crackles, no rales and no rhonchi Cardio: Rate: regular rate Heart sounds: no click, no murmurs and no rubs GI: Inspection: non-distended GI Palp: No Tenderness to palpation present (GI) Auscultation: normal bowel sounds Other: Incision - CDI Extrem: General: normal to inspection, no pedal edema and no calf tenderness
[2024-05-13 11:45] VITALS: BP 119/64; PULSE 57; RESP 16; TEMP 36.4; O2SAT 100
--- NOTE | 2024-05-13 12:30 | PC.NURSE ---
Consulted with mother concerning needs and she shared her ability to independently latch infant optimally without pain. Mother denies needing additional education. Mother is feeding appropriately for growth of and understands stimulating infant to eat if needed. Infant has had appropriate feedings in the last 24 hours meets the outcomes for weight, output, blood sugar and jaundice at this time. Reinforced understanding of milk production, transition of milk, signs of adequate intake, transition of stool, prevention/relief of engorgement, plugged ducts, mastitis, responsive watching for feeding cues, the different methods of stimulating infant to breastfeed 1-3 hours after the start of the last feeding, community resources, and when to call a provider using the resource of the feeding sheet along with the mom and baby guide. Mother voiced understanding of the information shared, is confident to continue effectively her infant at home, when to call for assistance, denies any additional assistance or education at this time. Reported to the Primary RN.
--- NOTE | 2024-05-13 15:30 | PC.NURSE ---
Called to room for assistance with latching infant. Mother describes pinching feeling when is latched. This RN educated mother on signs of a proper latch and how to achieve a good latch. Infant was placed on the right breast in cross cradle position and mother states that she does not feel pain and it feels much better . This RN asked mother to call for help when switching to the left breast so latch can be observed.
[2024-05-15 09:24] VITALS: BP 127/72; PULSE 56; RESP 18; TEMP 36.7; O2SAT 100
--- NOTE | 2024-06-12 10:10 | PM.OBDSVD ---
DS: Admitting Diagnosis Discharge Date 05/13/24 Admitting Diagnosis term DS: Discharge Diagnosis Discharge Diagnosis (1) Post term , delivered: Code(s): O48.0 - Post-term Status: Acute OB - DS: Summary OB Procedures : None OB Procedures Intrapartum: Spontaneous Vag Delivery OB Procedures: : None Peripartum Data Laceration Description: None Time Spent with Patient Time attestation: Total time spent providing and/or coordinating discharge services: Discharge Plan Discharge Consulting providers: Zulay Hdz; Garrett Walden Discharging Clinician: Sachin Newton Patient Disposition: Home, Self-Care Activity: may shower, as tolerated and other - see discharge instructions Diet: regular Discharge Instructions: Education: Mom and Baby Guide Given to: Mother Follow-Up: Call your delivering provider's office for an appointment to be seen in: call your OB's office to schedule an appointment Mom and baby should come to the [facility] for the follow-up appointment. Appointment Date/Time: May 15, 2024 at 9:00 am What to expect at your follow-up visit: Blood Pressure Check Physical Assessment Call [phone] if you are unable to keep your appointment time. BREAST CARE: * Wear a snug supportive bra. * For engorgement discomfort: Breast Feeding: * Apply warm moist washcloths * Express milk as needed to relieve engorgement * Wear loose clothing Bottle Feeding: * May apply ice packs * For sore nipples: * Identify correct latch-on * Apply warm moist washcloths before and after nursing * Air dry nipples after nursing * May apply Lansinoh cream to nipples PERINEAL CARE: * Until bleeding stops, use your alex bottle after urinating * Change your pad frequently throughout the day * You may take sitz baths several times a day (fill your bathtub with warm water and soak for 20 minutes.) Do NOT bathe in the water * No tub baths until seen by your physician - You may shower ACTIVITY: * Rest as much as possible. * Do not exercise or lift anything heavier than your baby (such as laundry or other children.) * Avoid stairs or driving as much as possible. * Do not put anything into the vagina. No douching, tampons, or sexual activity until seen by physician. NOTIFY PHYSICIAN IF YOU HAVE ANY QUESTIONS OR IF ANY OF THE FOLLOWING SYMPTOMS OCCUR: * If your episiotomy or incision becomes red, swollen, or more painful than what you have experienced in the hospital. * If your vaginal bleeding becomes foul smelling. * If your vaginal bleeding becomes more heavy than a period or if your bleeding changes from pink to bright red. However, you may pass an occasional walnut-sized clot once or twice for the first week . * If you experience a sharp, shooting pain in you calves. * If you discover a hard, reddened area on your breast or if you experience flu-like symptoms. DIET: * Eat regular, well-balanced meals. * Drink plenty of fluids daily. If , drink to thirst. Patient Instructions: Antibiotic Form Stand Alone Forms: General Discharge Information Follow-up/Referrals: Sachin Newton MD [Physician] - Discharge Medications: Continued PNV [id number] [] 28 mg iron- 800 mcg Tablet 1 tablet PO DAILY Slow Fe 142 mg (45 mg iron) Tablet Extended Release 142 mg PO DAILY Discontinued aspirin 81 mg Capsule 81 mg PO DAILY No Action cephalexin 500 mg capsule 500 mg PO Q12H 7 Days Qty: 14 0RF Date of admission: 05/12/24 11:32 Primary Care Provider: Zulay Hdz Admitting Provider: Sachin Newton Attending physician on admission: Sachin Newton Condition: Stable
== END 2024-05-13 16:18 | disposition home or self-care (01) | DRG 807 ==
LOC: ANHLDR 11:36 → ANHOB2 16:41
PROVIDERS: Admitting Provider Obstetrics & Gynecology; PCP Advanced Practice Midwife; Visit Provider Obstetrics & Gynecology
DX: O67.9 Intrapartum hemorrhage, unspecified (principal); Z37.0 Single live birth; Z3A.38 38 weeks gestation of pregnancy
CPT/HCPCS: 36415; 85014; 85018; 85025; 86592; 86703; 86850; 86900; 86901; A9270; G0432; J2405; J2590; J2795; J7120

== ENCOUNTER 2024-06-01 12:41 | Emergency (ER) | payer OTHER, SELFPAY ==
--- NOTE | ~2024-06-01 | CT_ITS ---
EXAMINATION: CT abdomen pelvis w con DATE: 06/01/2024 15:59 INDICATION: Suprapubic pain. Fever. TECHNIQUE: Computed tomography (CT) of the abdomen and pelvis was performed with 100 mL Omnipaque 350 intravenous contrast. Automated exposure control and iterative reconstruction technique were employe d. The dose-length product was 252.59 mGy-cm. COMPARISON: None. FINDINGS: The visualized portions of the lung bases demonstrate mild atelectasis. A calcified right l lani nodule is consistent with old granulomatous disease. No pleural effusion. The heart size is dani l. No pericardial effusion. The liver and gallbladder are normal. There is mild splenomegaly, likely secondary to obesity. The pancreas and adrenal glands are normal. There is a 7 mm cyst in left kidney . There is bilateral medullary nephrocalcinosis. There are no dilated loops of bowel. The appendix is normal. There are no pathologically enlarged lymph nodes. There is no free intraperitoneal fluid. Th ere is a 1.6 cm nonaggressive lytic lesion in intertrochanteric region of proximal right femur, likel y a benign lesion such as fibrous dysplasia. IMPRESSION: 1. Bilateral medullary nephrocalcinosis. Reviewed, dictated and finalized at location A.
[2024-06-01 12:45] VITALS: BP 117/84; PULSE 87; RESP 17; TEMP 37; O2SAT 99
[2024-06-01 14:01] VITALS: BP 130/87; PULSE 70; RESP 18; TEMP 37.4; O2SAT 98
[2024-06-01 14:08] LABS: Basophils Percent Auto 0.8 % (0.2-1.2); Eosinophils Percent Auto 0.8 % (0-4.4); Hematocrit 40.2 % (37.0-47.0); Hemoglobin 12.6 g/dL (12.0-15.0); Immature Granulocyte Absolute 0.01 K/mm3 (0.00-0.031); Immature Granulocyte Percent A 0.3 % (0-0.5); Lymphocytes Absolute Auto 0.91 K/mm3 (0.9-3.2); Lymphocytes Percent Auto 24.9 % (18.3-44.2); Mean Corpuscular HGB Conc 31.3 g/dl (32-36); Mean Corpuscular Hemoglobin 25.6 pg (26-34); Mean Corpuscular Volume 81.5 fl (80-100); Mean Platelet Volume 9.9 fl (7.4-10.4); Monocytes Absolute Auto 0.3 K/mm3 (0.1-0.6); Monocytes Percent Auto 9.3 % (2.6-8.5); Neutrophils Absolute Auto 2.3 K/mm3 (1.3-6.7); Neutrophils Percent Auto 63.9 % (45.5-73.1); Platelet Count Result 177 k/mm3 (150-375); Red Blood Count 4.93 M/mm3 (4.2-5.4); Red Cell Distribution Width 15.9 % (11.5-14.5); White Blood Count 3.7 K/mm3 (4.5-10.0)
[2024-06-01 14:22] LABS: Alanine Aminotransferase 24 U/L (6-35); Albumin Level 4.3 g/dL (3.5-5.1); Alkaline Phosphatase 97 U/L (38-126); Anion Gap 10 mmol/L (4-12); Aspartate Amino Transferase 30 U/L (14-36); Bilirubin,Total 0.7 mg/dL (0.2-1.3); Blood Urea Nitrogen 9 mg/dL (7-17); Calcium 9.8 mg/dL (8.4-10.2); Carbon Dioxide 29 mmol/L (22-30); Chloride 100 mmol/L (98-107); Estimated CRCL calculation 65 ml/min; Estimated Glomerular Filt Rate > 60; Glucose 90 mg/dL (65-110); Lipase 108 U/L (23-300); Potassium 3.4 mmol/L (3.4-5.0); Sodium 139 mmol/L (137-145)
[2024-06-01 14:28] LABS: BEDSIDEPREGUCG Negative (Negative)
[2024-06-01 14:35] LABS: Add Urine Microscopic? YES; Appearance Urine Clear (Clear); Bacteria Urine None Seen /hpf; Bilirubin Urine Negative (Negative); Blood Urine 2+ (Negative); Color Urine Yellow (Yellow); Glucose Urine UA Negative (Negative); Ketones Urine Negative (Negative); Leukocyte Esterase Ur 2+ LEU/UL (Negative); Nitrate Urine Negative (Negative); Non Pathogenic Casts 0-2; Protein Urine Negative (Negative); Specific Grav Ur 1.013 (1.001-1.035); Squamous Epithelial Cell Urine None Seen /hpf (Few); WBC Urine 21-50 /hpf (0-3)
--- NOTE | 2024-06-01 14:57 | ED.FEVER ---
HPI - Fever General Chief Complaint: Fever Stated Complaint: fever, abdominal pain, about 3 weeks Time Seen by Provider: 06/01/24 14:35 History of Present Illness HPI Narrative: 29-year-old female presenting with abdominal pain. States that she delivered her 9th child vaginally approximately 3 weeks ago. States that she has been doing well until yesterday when she developed abdominal pain just underneath her belly button. States that it comes and goes, it is worse with movement. Denies abnormal vaginal bleeding or discharge. No nausea or vomiting. States that she had a temperature of 101? F yesterday. No diarrhea or constipation. No further complaints. Related Data Home Medications Medication Instructions Recorded Confirmed vit no.95-ferrous 1 tablet PO DAILY 06/26/21 05/12/24 fumarate 28 mg-folic acid 800 mcg tablet () ferrous sulfate 142 mg (45 mg 142 mg PO DAILY 10/28/22 05/12/24 iron) tablet,extended release (Slow Fe) Allergies Allergy/AdvReac Type Severity Reaction Status Date / Time No Known Allergies Allergy Unknown Verified 06/01/24 12:48 Review of Systems Review of Systems: All systems reviewed & are unremarkable except as noted in HPI and below PMFSH Past Medical History Medical History Depression Pain during labor Surgical History Surgical History No pertinent past surgical history Social History Social History Smoking status: Never smoker Second hand tobacco smoke exposure: No Alcohol intake: never Substance use: never Do You Feel Safe in your Home?: Yes Lack of Transportation: No Lack of Food: Never True Current Housing: I Have Housing Concerned About Future Housing: No Difficulty Paying Gas/Electric Bills: No Difficulty Paying for Meds: No Currently Unemployed: No Education: Don't Know Difficulty w/ Childcare or Family Care: No Gender identity (if verbalized by the patient): Female Spiritual care concerns: No Exam Narrative: GENERAL: Nontoxic, no acute distress HEAD: Normocephalic, atraumatic. EYES: PERRLA and EOMI. ENT: Mucous membranes moist. NECK: Supple. CHEST: Clear to auscultation. No respiratory distress. HEART: Regular rate and rhythm ABDOMEN: Soft,+ tender in suprapubic region, no guarding or rebound EXTREMITIES: Normal range of motion SKIN: Warm, dry, no rash. NEURO: No focal deficits. Alert and oriented x3. PSYCH: Normal mood and affect. Course Vital Signs Vital signs: Vital Signs Temperature 98.6 F 06/01/24 12:45 Pulse Rate 87 06/01/24 12:45 Respiratory Rate 17 06/01/24 12:45 Blood Pressure 117/84 06/01/24 12:45 Pulse Oximetry 99 06/01/24 12:45 Oxygen Delivery Room Air 06/01/24 12:45 Temperature 98 F 06/01/24 17:00 Pulse Rate 63 06/01/24 17:00 Respiratory Rate 16 06/01/24 17:00 Blood Pressure 122/82 06/01/24 17:00 Pulse Oximetry 99 06/01/24 17:00 Oxygen Delivery Room Air 06/01/24 12:45 MDM - Fever MDM Narrative Medical decision making narrative: 29-year-old female presenting with abdominal pain and fevers. Vitals are within normal limits. Exam remarkable for the above. Blood work is unremarkable. UA is concerning for UTI. CT abdomen pelvis without acute findings. There is evidence of bilateral medullary nephrocalcinosis. Advised that she follow-up closely with PCP regarding this finding. Patient started on Keflex, feel she is safe for outpatient management. She is agreeable this plan. Appropriate return precautions given. Discharged in stable condition. Differential Diagnosis Differential diagnosis: Likely other (UTI, fever, abdominal pain) Medical Records Attestation: I reviewed the patient's medical records. Lab Data Attestation: I re
[2024-06-01] MEDS: SODIUM CHLORIDE 0.9% IV 1,000 ML 999 ML IV CONT (15:18)
[2024-06-01 16:00] VITALS: BP 125/87; PULSE 67; RESP 16; O2SAT 100
[2024-06-01 16:15] LABS: Influenza A QL RT-PCR Negative (Negative); Influenza B QL RT-PCR Negative (Negative); RSV RNA, RT-PCR Negative (Negative); SARS-CoV-2 RNA PCR Negative (Negative)
[2024-06-01] MEDS: CEPHALEXIN 500 MG CAPSULE PO (16:40)
[2024-06-01 17:00] VITALS: BP 122/82; PULSE 63; RESP 16; TEMP 36.6; O2SAT 99
== END 2024-06-01 17:05 | disposition home or self-care (01) ==
PROVIDERS: Student in an Organized Health Care Education/Training Program; Emergency Provider Emergency Medicine; PCP Advanced Practice Midwife
DX: O86.20 Urinary tract infection following delivery, unspecified (principal); N39.0 Urinary tract infection, site not specified; Z20.822 Contact with and (suspected) exposure to COVID-19; O99.285 Endocrine, nutritional and metabolic diseases complicating the puerperium; E83.59 Other disorders of calcium metabolism; N29 Other disorders of kidney and ureter in diseases classified elsewhere
CPT/HCPCS: 36415; 74177; 80053; 81001; 81025; 83690; 85025; 87086; 87637; 96360; 99284; A9270; J7030; Q9967